=== PATIENT | female | born 1950 | race Caucasian/White ===

== ENCOUNTER 2021-07-27 12:14 | Outpatient (CLI) | payer MEDICARE, BC, SELFPAY ==
--- NOTE | 2021-07-27 12:45 | US_ITS ---
WS: [id number] ULTRASOUND SOFT TISSUES RIGHT neck. HISTORY: mass inferior to thyroid gland COMPARISON: None available. TECHNIQUE: 2-D and color Doppler imaging is submitted. There is a soft tissue hypoechoic mass inferior to the RIGHT thyroid which corresponds to the palpabl e abnormality. This mass is predominantly to the RIGHT of midline but also appears to extend across t he midline to the LEFT. Mass measures 3.0 x 2.9 x 2.0 cm and there is some increased vascularity cent rally. Mass extends into the midline between the clavicular heads. US/US soft tissue head neck [id number] IMPRESSION: Solid mass with increased vascularity in the midline of the inferior neck showi ng slightly greater to the RIGHT. Lymphadenopathy is likely. May be a goiter or exophytic thyroid tissue. This does not appear to be a cystic mass or thyroglo ssal duct cyst. There is vascularity centrally. This mass needs to be further e valuated by CT. Recommend neck CT with IV contrast for complete evaluation.
== END 2021-07-27 12:15 | disposition home or self-care (01) ==
LOC: RAD 12:16
PROVIDERS: Visit Provider Family Medicine
DX: R22.1 Localized swelling, mass and lump, neck (principal)
CPT/HCPCS: 76536

== ENCOUNTER 2021-10-08 15:19 | Outpatient (CLI) | payer MEDICARE, BC, SELFPAY ==
--- NOTE | 2021-10-08 15:30 | CT_ITS ---
WS: [id number] CT NECK WITH CONTRAST HISTORY: R22.1 - Localized swelling, mass and lump, neck TECHNIQUE: Contiguous 5 mm axial images are performed through the neck with intravenous contrast. Sag ittal and coronal reformats are also submitted. All CT scans at [facility] use at least one o f these dose optimization techniques: automated exposure control; mA and/or kV adjustment per patient size (includes targeted exams where dose is matched to clinical indication); or iterative reconstruc tion. CONTRAST: CONTRAST: Omnipaque 350; 95 mL IV. DLP: 281.10 mGy.cm COMPARISON: Soft tissue ultrasound 07/27/2021. There is a solid lobulated mass centered in the midline of the neck beginning along the inferior dmitri in of the thyroid. This mass abuts both the RIGHT and LEFT lobes of the thyroid and the isthmus. Ther e is probable invasion into the thyroid gland but not likely arising from the thyroid gland. The ster nocleidomastoid muscles are being invaded and there is no longer fat plane. Slightly greater invasion on the RIGHT. The RIGHT internal jugular vein is being displaced and deformed. There is very slight contact on the LEFT jugular vein. Mass begins in the inferior neck and extends over a length of 4.5 c m distally and between the clavicular heads. Transverse diameter 6.1 cm and AP diameter 4.6 cm. No tongue base mass. Fossa of Rosenmuller and torus tubarius are negative. Parotid glands and submand ibular glands are negative. There are small level 1 and level 2 lymph nodes. The largest lymph node i s 9 mm and slightly rounded at level IIa on the RIGHT. False and true vocal cords are negative. No la ryngeal abnormality. Additional lymph node which appears enlarged between the RIGHT innominate and LE FT common carotid artery. Lymph node with a maximum diameter 12 mm. Imaging the upper lung montemayor is normal. Emphysematous changes but no mass or adenopathy. Moderate mucoperiosteal thickening in the LEFT maxillary sinus. CT/CT neck w con* [id number] IMPRESSION: 1. Large soft tissue mass in the inferior LEFT neck measures 6.1 x 4.6 cm and extends over length of 4.5 cm. Mass begins from the inferior border of the thyr oid and extends inferiorly into the supraclavicular notch. Inseparable and prob ably extends into the sternocleidomastoid muscles and thyroid gland. Favor this is probably lymphoma. Fine-needle aspiration/core biopsy need to be performed for histology. 2. There is additional enlarged lymph node centered between the RIGHT and sherry nant and LEFT carotid artery. Bovine arch. Additional RIGHT indeterminate level IIa lymph node.
[2021-10-08 15:53] LABS: Blood Urea Nitrogen 17 mg/dL (8-23)
[2021-10-08] MEDS: iohexol 350 mg/mL 100 mL Btl IV (15:57)
== END 2021-10-08 15:20 | disposition home or self-care (01) ==
LOC: RAD 15:20
PROVIDERS: Visit Provider Family Medicine
DX: R22.1 Localized swelling, mass and lump, neck (principal)
CPT/HCPCS: 70491; 82565; 84520

== ENCOUNTER 2021-10-21 10:37 | Outpatient (CLI) | payer MEDICARE, BC, SELFPAY ==
--- NOTE | 2021-10-21 10:42 | US_ITS ---
WS: [id number] ULTRASOUND GUIDED BIOPSY INFERIOR RIGHT NECK. HISTORY: growing anterior neck mass Procedure, risks, and complications are explained to the patient. Consent was obtained. Skin is clean sed with ChloraPrep and anesthetized with 1% buffered lidocaine. There is a soft tissue mass along the anterior RIGHT neck within the suprasternal notch location. Thi s mass abuts the thyroid and sternocleidomastoid muscles on prior imaging studies. Mass is localized with ultrasound. Skin is cleansed with ChloraPrep and anesthetized with 1% buffered lidocaine. Procedure is explained in detail to the patient. Fine-needle aspirations are performed with 25-gauge needles. Additional 20-gauge core biopsy is perfo rmed. nuclear medicine chief technologist are present to collect the specimens. No complications. Patient will be observed for 10 to 15 minutes post procedure. US/ biopsy [id number] IMPRESSION: 1. Uncomplicated fine-needle aspiration and core biopsy of a suprasternal notc h, midline neck mass. 2. No complications.
[2021-10-22 12:14] LABS: Lymphoma Profile (BBPL) See Report
== END 2021-10-21 10:38 | disposition home or self-care (01) ==
LOC: RAD 10:39
PROVIDERS: PCP Family Medicine; Visit Provider Family Medicine
DX: D47.9 Neoplasm of uncertain behavior of lymphoid, hematopoietic and related tissue, unspecified (principal); R22.1 Localized swelling, mass and lump, neck
CPT/HCPCS: 10005; 20206; 76942; 88173; 88184; 88185; 88305; 88309; 88342

== ENCOUNTER → 2021-10-25 13:53 | Day surgery (SDC) | payer MEDICARE, BC, SELFPAY | PROVIDERS: PCP Family Medicine; Referring Provider Family Medicine; Visit Provider Otolaryngology | DX: Z01.818 Encounter for other preprocedural examination (principal); R22.1 Localized swelling, mass and lump, neck | CPT/HCPCS: 99205 ==

== ENCOUNTER 2021-11-04 06:52 | Day surgery (SDC) | payer MEDICARE, BC, SELFPAY ==
[2021-11-03 13:42] VITALS: BMI 31.0
[2021-11-04] VITALS (9 sets, daily range): BP systolic 93–163; BP diastolic 47–79; PULSE 57–77; RESP 13–22; TEMP 36.1–36.6; O2SAT 94–100
[2021-11-04] MEDS: sodium chloride 0.9% 1,000 ML 30 ML IV (07:28)
--- NOTE | 2021-11-04 07:51 | ANES.PREANE2 ---
Pre-Anesthetic Assessment Height/Weight: Height 1.52 m Weight 72.121 kg Temp Pulse Resp BP Pulse Ox 97.6 F 62 18 138/75 97 11/04/21 07:19 11/04/21 07:19 11/04/21 07:19 11/04/21 07:19 11/04/21 07:19 Preop Diagnosis: Anterior neck mass etiology undetermined Operation Date: 11/04/21 08:35 Proposed Procedures p Exploration of anterior neck and removal of tissue 56032/R22.1(Not Applicable) - Dexter Madison MD Familial anesthetic complications: None Was Beta Navi taken within 24 hours: N/A Was Clonidine taken within 24 hours: N/A Last intake: Intake Last Liquid Date 11/03/21 Last Liquid Time 21:00 Last Solid Date 11/03/21 Last Solid Time 19:00 Social Tobacco and No alcohol Exam alert, oriented x 3 and regular rate & rhythm Airway Submandibular: within normal limits Cervical ROM: Other (limited extension) Mallampati: Class III Pulmonary Chronic Obstructive Pulmonary Disease CV/HEM Hypertension Neuropsych Anxiety and Depression Anesthetic Plan ASA status: 2 Anesthesia: General Medications/Allergies Home Medications Medication Instructions Recorded Confirmed Last Taken Type lorazepam 1 mg tablet 1 mg PO DAILY PRN 11/03/21 11/04/21 11/04/21 History multivitamin 1 tab PO DAILY 11/03/21 11/04/21 11/03/21 History Allergies Allergy/AdvReac Type Severity Reaction Status Date / Time No Known Allergies Allergy Verified 11/04/21 07:17 Current Medications Generic Name Dose Route Start Last Admin Trade Name Freq PRN Reason Stop Dose Admin Sodium Chloride 1,000 mls @ 30 mls/hr 11/04/21 07:15 11/04/21 07:28 Sodium Chloride 0.9% IV 11/05/21 07:14 30 mls/hr .Q24H KENAN Administration PFSH Anesthesia Medical History Palpable mass of neck Social History Smoking and tobacco status: never smoked Alcohol intake: current Data Anesthesia Cardiac Studies: No Data to Display
--- NOTE | 2021-11-04 09:18 | W.PM.OPSUD ---
Surgery/Procedure H&P Update DATE OF PROCEDURE: November 04, 2021 DATE H&P PERFORMED: 10/25/21 H&P UPDATE INFORMATION: I have reviewed H&P completed within last 30 days, I have examined patient prior to procedure and No changes to prior documentation CHANGES TO PREVIOUS DOCUMENTATION: No changes PREOP DIAGNOSIS: Anterior neck mass etiology undetermined PRIMARY INDICATION FOR PROCEDURE: Obtain tissue for diagnostic purposes of anterior lower neck mass. PLANNED PROCEDURE: Operation Date: 11/04/21 08:35 Proposed Procedures p Exploration of anterior neck and removal of tissue 63719/R22.1(Not Applicable) - Dexter Madison MD
[2021-11-04] MEDS: neomycin-poly-bacitracin oint 28 gm 1 APPLIC TOPICAL (10:12)
--- NOTE | 2021-11-04 10:21 | PM.OP ---
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 Procedure done: Neck exploration and incisional biopsy of lower anterior neck mass with frozen section. Implants: No implants used. Specimens removed/disposition: Section of anterior neck mass excised and sent to pathology for frozen section and permanent section. Pathology: Frozen section returned as malignant metastatic disease from uncertain primary possibly squamous cell carcinoma. Surgeon: Dexter Madison MD Anesthesia: General and Local Estimated blood loss: 10 mL Complications: No complications encountered Findings: Patient had a lobulated irregular whitish appearing mass with some firm areas and some necrosis. Brief History: 71-year-old female patient has had an anterior neck mass that has been enlarging and causing her some symptomatology as well as the obvious external deformity on her neck. Therefore she had seen her primary doctor who apparently did a core biopsy and this was inconclusive. Patient is being brought to the operating room at this time to undergo an open incisional biopsy with removal of enough tissue to get a definitive diagnosis. The procedure its risks and complications were explained and understood. Informed consent was granted and witnessed. The discussed risks included bleeding infection numbness scarring swelling bruising persistence of the problem as this is just a diagnostic procedure and therefore need for additional treatment as well as more serious risks associated with anesthesia. Procedure: Description of procedure: The patient was placed on the operating table in the supine position. Adequate general LMA anesthesia was obtained. Patient received Ancef IV for prophylaxis. The patient was placed supine on the table and then placed into a beachchair position with shoulder roll placed under the shoulder and the neck and chin extended somewhat. A timeout was accomplished identifying the patient date of plan procedure allergies fire risk and medications given. The right lateral aspect was the area that I was going to take the biopsy from and so I cleansed the area with alcohol and then injected a total of 1.7 mL of 2% Xylocaine with 1-100,000 epinephrine. Then the patient was prepped and draped in usual fashion. A marking pen was used to outline a curved incision and a lower neck skin crease line. The incision was created with the cut mode of the Bovie and extended down through the subcutaneous fat layer. Then careful dissection was carried out layer by layer down to the mass. Hemostasis was attained with bipolar cautery. When the mass was identified it appeared somewhat irregular and lobulated with general appearance of lymph node tissue. I incised a segment of this from the right anterior portion of the mass taking about 2 by 2 x 2 centimeter cubed tissue. Some of the tissue was firm and much of it was very soft and likely necrotic. Because of that I took another segment about 1.5 cm cube from the right lateral aspect at its attachment to the clavicle head. Specimen was sent to pathology for frozen section. The area was packed and hemostasis was attained with bipolar cautery. The specimen returned as metastatic likely squamous cell carcinoma. He felt that there was adequate tissue to give a definitive diagnosis. When that information was available I controlled bleeding again. There was general tissue ooze from the viable tumor and therefore I applied Surgicel over this area. Then I closed in multiple layers with interrupted 4-0 chromic suture to close the space. Then closed the subcutaneous layer with interrupted 4-0 chromic and closed the skin with lane. The area was then cleansed. Neosporin ointment was applied and a large sterile Band-Aid was placed over the lane and the incision. Drapes were removed and the patient was returned to anesthesia for wake-up and extubation. The patient tolerated the procedure well had an estimated blood loss of 10 mL and arrived in recovery in stable condition.
--- NOTE | 2021-11-04 13:45 | ANE.PACU2 ---
Inpatient post-anesthesia follow up: Airway intact: Yes Vital signs: Temperature 97.8 F Pulse Rate 65 Respiratory Rate 16 Blood Pressure 163/79 Pulse Oximetry 98 Oxygen Delivery Me thod Room Air Oxygen Flow Rate 6 Fraction of Inspir ed Oxygen Hydration adequate: Yes Nausea and vomiting: No Pain level: 2 Mental status: Baseline
[2021-11-25 09:59] LABS: Miscellaneous Test See Scanned Lab Rpt
== END 2021-11-04 11:42 | disposition home or self-care (01) ==
PROVIDERS: PCP Family Medicine; Visit Provider Otolaryngology
PROC: (CPT 13131; principal; 2021-11-04 08:25)
DX: C79.2 Secondary malignant neoplasm of skin (principal); R22.1 Localized swelling, mass and lump, neck; J44.9 Chronic obstructive pulmonary disease, unspecified; I10 Essential (primary) hypertension; F41.9 Anxiety disorder, unspecified; F32.9 Major depressive disorder, single episode, unspecified
CPT/HCPCS: 13131; 21555; 88307; 88331; 88365; 88374; J0330; J0690; J1100; J2370; J2405; J2704; J3010; J3490; J7030

== ENCOUNTER → 2021-11-12 09:04 | Outpatient (BNVA) | payer MEDICARE, BC, SELFPAY | PROVIDERS: PCP Family Medicine; Visit Provider Otolaryngology | DX: R22.1 Localized swelling, mass and lump, neck (principal); C80.1 Malignant (primary) neoplasm, unspecified; C79.89 Secondary malignant neoplasm of other specified sites | CPT/HCPCS: 31575; 99024; 99203 ==

== ENCOUNTER → 2021-11-16 09:32 | Outpatient (BNVA) | payer MEDICARE, BC, SELFPAY | PROVIDERS: PCP Family Medicine; Visit Provider Otolaryngology | DX: C85.10 Unspecified B-cell lymphoma, unspecified site (principal); C80.1 Malignant (primary) neoplasm, unspecified; C79.89 Secondary malignant neoplasm of other specified sites | CPT/HCPCS: 99024 ==

== ENCOUNTER → 2021-12-17 09:28 | Outpatient (BNVA) | payer MEDICARE, BC, SELFPAY | PROVIDERS: PCP Family Medicine; Visit Provider Otolaryngology | DX: C85.10 Unspecified B-cell lymphoma, unspecified site (principal) | CPT/HCPCS: 99024 ==

== ENCOUNTER 2021-12-22 08:10 | Oncology outpatient (recurring) (ONCR) | payer MEDICARE, BC, SELFPAY | END 2021-12-22 23:59 | disposition home or self-care (01) | PROVIDERS: PCP Family Medicine; Visit Provider Internal Medicine Medical Oncology | DX: C85.11 Unspecified B-cell lymphoma, lymph nodes of head, face, and neck (principal) | CPT/HCPCS: 99203 ==

== ENCOUNTER 2021-12-28 09:55 | Day surgery (SDC) | payer MEDICARE, BC, SELFPAY ==
[2021-12-27 12:25] VITALS: BMI 30.2
--- NOTE | 2021-12-28 | SCC_ITS ---
Procedure done: 1. Placement of PowerPort catheter via the right internal jugular vein 2. Fluoroscopic guidance and interpretation for placement of catheter 3. Ultrasound guidance to access the right internal jugular vein 31.6 seconds of fluoroscopic guidance, for a cumulative dose of 5.16 mGy, was provided to Dr. Juárez by the radiology department. C-arm images of the chest were saved for the patient's permanent record. [facility]
--- NOTE | 2021-12-28 09:59 | SC_ITS ---
WS: [id number] C-ARM RADIOGRAPHS CHEST; 2 IMAGES HISTORY: PowerPort placement COMPARISON: None available. Intraoperative imaging during RIGHT subclavian PowerPort placement. Tip of the power port overlies th e distal SVC. SC/C-arm FL for CVA [id number] IMPRESSION: Intraoperative imaging during RIGHT sided power port placement.
[2021-12-28 10:09] VITALS: BP 161/86; PULSE 65; RESP 16; TEMP 36.6; O2SAT 96
[2021-12-28] MEDS: sodium chloride 0.9% 1,000 ML 30 ML IV (10:29)
--- NOTE | 2021-12-28 11:57 | ANES.PREANE2 ---
Pre-Anesthetic Assessment Height/Weight: Height 1.52 m Weight 70.307 kg Temp Pulse Resp BP Pulse Ox 98 F 65 16 161/86 96 12/28/21 10:09 12/28/21 10:09 12/28/21 10:09 12/28/21 10:09 12/28/21 10:09 Preop Diagnosis: Lymphoma Operation Date: 12/28/21 11:30 Proposed Procedures p Portacath Placement 29307,C85.11(Not Applicable) - Rahat Juárez MD Familial anesthetic complications: none Was Beta Navi taken within 24 hours: N/A Was Clonidine taken within 24 hours: N/A Last intake: Intake Last Liquid Date 12/27/21 Last Liquid Time 19:00 Last Solid Date 12/27/21 Last Solid Time 19:00 Social No alcohol and No tobacco Exam alert, oriented x 3 and regular rate & rhythm Airway Submandibular: within normal limits Cervical ROM: within normal limits Mallampati: Class II Dentition: chipped CV/HEM Hypertension lymphoma Neuropsych Anxiety Anesthetic Plan ASA status: 3 Anesthesia: MAC Medications/Allergies Home Medications Medication Instructions Recorded Confirmed Last Taken Type lorazepam 1 mg tablet 1 mg PO DAILY PRN 11/03/21 12/28/21 12/28/21 09:00 History multivitamin 1 tab PO DAILY 11/03/21 12/28/21 12/27/21 History Allergies Allergy/AdvReac Type Severity Reaction Status Date / Time No Known Allergies Allergy Verified 12/28/21 10:02 Current Medications Generic Name Dose Route Start Last Admin Trade Name Freq PRN Reason Stop Dose Admin Sodium Chloride 1,000 mls @ 30 mls/hr 12/28/21 10:00 12/28/21 10:29 Sodium Chloride 0.9% IV 12/29/21 09:59 30 mls/hr .Q24H KENAN Administration PFSH Anesthesia Medical History Anxiety Surgical History S/P biopsy (~11/04/21) Neck exploration and incisional biopsy of lower anterior neck mass Family History Father Cancer bladder Grandmother Stroke Other Diabetes Hyperlipidemia Hypertension Lung disease Denies family history of CAD (coronary artery disease) Clotting disorder Dementia Psychiatric illness Chronic kidney disease (CKD) Suicide Anesthesia complication Bleeding disorder Social History Smoking and tobacco status: never smoked Alcohol intake: current Data Anesthesia Cardiac Studies: No Data to Display
--- NOTE | 2021-12-28 12:39 | W.PM.OPSUD ---
Surgery/Procedure H&P Update DATE OF PROCEDURE: December 28, 2021 DATE H&P PERFORMED: 12/22/21 H&P UPDATE INFORMATION: I have reviewed H&P completed within last 30 days, I have examined patient prior to procedure and No changes to prior documentation PREOP DIAGNOSIS: Lymphoma PRIMARY INDICATION FOR PROCEDURE: The same PLANNED PROCEDURE: Operation Date: 12/28/21 11:30 Proposed Procedures p Portacath Placement 68135,C85.11(Not Applicable) - Rahat Juárez MD
[2021-12-28] MEDS: ceFAZolin 2,000 MG in sodium chloride 0.9% (plus) 50 ML 100 MG IV (13:00)
[2021-12-28] MEDS: heparin, porcine 1,000 unit/mL INJ 10 mL 9000 UNIT XX (13:38)
[2021-12-28] MEDS: lidocaine 2% INJ 20 mL INJECTION (13:38)
--- NOTE | 2021-12-28 13:56 | PM.OP ---
Operative Report Date of procedure: December 28, 2021 Pre-op diagnosis: Preop Diagnosis Lymphoma Post-op diagnosis: Difficulty in accessing the right subclavian vein due to body habitus Procedure done: 1. Placement of PowerPort catheter via the right internal jugular vein 2. Fluoroscopic guidance and interpretation for placement of catheter 3. Ultrasound guidance to access the right internal jugular vein Surgeon: Rahat Juárez MD Foxing Cutting Machine Operator: Surgical techmanohar Dietz paint technician dwain Circulating nurse Aster Anesthesia: MAC (Gracie Mistry) Estimated blood loss (mL): 15 Procedure: Patient was identified in the holding area and taken to the operative room and placed in supine position IV propofol was given by the anesthesia provider ,both arms were tucked,Time-out was done verifying the patient's name/date of /planned procedure and destination after the procedure, all were in agreement. SCDs confirmed to be functioning, preoperative antibiotics administered per protocol, and beta abdirashid protocol was confirmed, appropriate positioning of the patient was done by me. Medications were reviewed to assess for anticoagulant usage. Risks and benefits and prevention of central line associated blood stream infection (CLABSI) were discussed with the patient/CPOA, and a consent was obtained. Monitors were in place and monitored throughout the procedure. All necessary supplies were available prior to start. Hand hygiene was completed prior to starting. Maximum barrier technique was utilized including a sterile gown, sterile gloves with a hat and mask. Site was was prepped with [chlorhexidine] and a full body drape was placed. 5 mL of 2% lidocaine was injected into the skin with a 25 gauge needle. Prep& drape was done under the usual sterile technique, lidocaine 2% was injected at the site of the stick, started by Right subclavian vein but patient's body habitus hindered safe access so I deviated my attention to the right internal jugular vein Right Internal Juglar vein stick that retrieved venous blood was obtained from the first stick under ultrasound guidance and there was no evidence of intraluminal thrombosis, interpretation was done by me through the whole entire procedure, a guidewire was then threaded and under the guidance of fluoroscopy position was confirmed to be in the right side of the heart and per my interpretation, PVC were gone after wire adjust, at that point the guidewire was secured to the drapes with a hemostat and the needle was taken out. Attention was then deviated towards creation of a pocket for the port were lidocaine 2% was injected using an 15 blade knife skin incision was created at the right upper Chest ,dissection using the Bovie to create a pocket for the Port-A-Cath to be accommodated, hemostasis was secured, after the port being appropriately flushed it was inserted into the pocket and a tunneler was used to accommodate the catheter of the port cath to be delivered through the incision first created at the site of the stick and then I was able to retrieve the catheter at the index site of the stick. At that point under fluoroscopy an estimated length was measured for the catheter and was cut at the designed level, followed by that a dilator with the sheath introduced onto the guidewire the dilator and the wire were retrieved and the catheter of the port was introduced via the sheath where it was peeled off and the catheter maintained to be in the SVC that was confirmed with fluoroscopy, and the fluoroscopy interpretation was done by me throughout the entire procedure. Multiple flushes of the port was done by heparin and I was able to retrieve without difficulty venous blood as well as appropriate flushing was achieved. The port was kept in its pocket,3-0 Vicryl deep subdermal interrupted sutures, skin was then closed by 4-0 Monocryl as subcuticular closure. The port was appropriately flushed with heparin and venous blood was withdrawn without difficulty The stick site was closed by 4-0 Monocryl and Dermabond was used followed by pressure dressing. Patient tolerated the procedure well was taken to the recovery area Count was correct at the end of the procedure I was present for the whole entire procedure
--- NOTE | 2021-12-28 14:00 | XRR_ITS ---
PROCEDURE INFORMATION: Exam: XR Chest Exam date and time: 12/28/2021 2:05 PM Age: 71 years old Clinical indication: Other vascular access device placement or adjustment; Port; Additional info: Status post right internal jugular vein, powerport placement TECHNIQUE: Imaging protocol: Radiologic exam of the chest. Views: 1 view. COMPARISON: CT neck w con* [id number] 10/08/2021 3:52 PM FINDINGS: Tubes, catheters and devices: Right chest wall infusion port with catheter tip in the cavoatrial region. Lungs: There is a triangular-shaped opacity in the right medial basilar region. This is probably a prominent epicardial fat however comparison with prior imaging study should be obtained for confirmation.The lung bases are suboptimally assessed due to technique however the upper lungs are clear of focal consolidation. Pleural spaces: Unremarkable. No pleural effusion. No pneumothorax. Heart/Mediastinum: Cardiac silhouette appears normal in size. No obvious vascular congestion. Bones/joints: No acute osseous findings. Other findings: Single view was submitted. XR/XR chest 1V portable [id number] IMPRESSION: Right medial basilar opacity as described. See discussion above. No acute findings otherwise.
[2021-12-28 14:07] VITALS: BP 124/93; PULSE 65; RESP 17; TEMP 36.3; O2SAT 100
[2021-12-28 14:10] VITALS: BP 151/73; PULSE 61; RESP 17; O2SAT 100
--- NOTE | 2021-12-28 14:14 | SUR.PHASEI ---
1405 PT AWAKE VERBALZIED NO PAIN OR NAUSEA, MONITOR SR O ECTOPY, DRESSING TO RT CHEST X 2 D/I X RAY AND DR ROGERS AT BEDSIDE, VSS PT MOVES ALL EXT TO COMMAND, IV #20 TO RT HAND NS 50 ML U P AT KVO RATE PER GRAVITY.
[2021-12-28 14:15] VITALS: BP 161/88; PULSE 60; RESP 11; TEMP 36.2; O2SAT 100
[2021-12-28 14:24] VITALS: BP 165/80; PULSE 59; RESP 16; TEMP 36.6; O2SAT 100
[2021-12-28 14:41] VITALS: BP 160/82; RESP 60; TEMP 36.6; O2SAT 99
--- NOTE | 2021-12-28 16:12 | ANE.PACU2 ---
Inpatient post-anesthesia follow up: Airway intact: Yes Vital signs: Temperature 97.8 F Pulse Rate 59 Respiratory Rate 60 Blood Pressure 160/82 Pulse Oximetry 99 Oxygen Delivery Me thod Room Air Oxygen Flow Rate Fraction of Inspir ed Oxygen Hydration adequate: Yes Nausea and vomiting: No Pain level: 2 Mental status: Baseline
== END 2021-12-28 15:04 | disposition home or self-care (01) ==
PROVIDERS: PCP Family Medicine; Visit Provider Surgery
PROC: (CPT 36561; principal; 2021-12-28 11:20)
DX: C85.90 Non-Hodgkin lymphoma, unspecified, unspecified site (principal); I10 Essential (primary) hypertension; F41.9 Anxiety disorder, unspecified
CPT/HCPCS: 36561; 71045; 76000; 77001; C1788; J1644; J2704; J7030

== ENCOUNTER → 2022-01-07 08:55 | Outpatient (BNVA) | payer MEDICARE, BC, SELFPAY | PROVIDERS: PCP Family Medicine; Visit Provider Surgery | DX: Z95.828 Presence of other vascular implants and grafts (principal) | CPT/HCPCS: 99213 ==

== ENCOUNTER 2022-01-11 11:13 | Oncology outpatient (recurring) (ONCR) | payer MEDICARE, BC, SELFPAY ==
--- NOTE | 2022-01-11 11:45 | USCV_ITS ---
Negrita Varghese Age: 71 Gender: F : 1950 Exam Date: 01/11/2022 11:37 Ordering Phys: Doug Giron MD Technologist: Amos Maynard [place] [facility] [place]: pretreatment eval BP: 144 / 80 HR: 61 Rhythm: Sinus Technical Quality: Adequate MEASUREMENTS (Male / Female) Normal Values 2D ECHO LV Diastolic Diameter PLAX 3.2 cm 4.2 - 5.9 / 3.9 - 5.3 cm LV Systolic Diameter PLAX 1.9 cm IVS Diastolic Thickness 1.4 cm 0.6 - 1.0 / 0.6 - 0.9 cm IVS Systolic Thickness 1.3 cm LVPW Diastolic Thickness 1.4 cm 0.6 - 1.0 / 0.6 - 0.9 cm LVPW Systolic Thickness 1.5 cm LVOT Diameter 2.0 cm LV Ejection Fraction 2D Teich 73.4 % LV Ejection Fraction MOD 2C 57.3 % LV Ejection Fraction 2C AL 58.1 % LA Diameter 3.2 cm LA Width 3.4 cm LA Height 4.1 cm RA Width 2.9 cm RA Height 4.1 cm Aorta at Sinotubular Diameter 2.0 cm IVC Diameter 1.2 cm M-MODE Aortic Annulus Diameter 2.2 cm LA Ao Ratio MM 1.5 MV E Point Septal Separation 0.3 cm DOPPLER Right Atrial Pressure 3.0 mmHg FINDINGS Left Ventricle 2D only. No M-mode or doppler. Normal left ventricular size, systolic function and wall thickness, with no regional wall motion abnormalities. Left ventricular ejection fraction is estimated at 60 %. Right Ventricle Normal right ventricular size and systolic function. Right Atrium The right atrium is normal in size. Left Atrium The left atrium is normal in size. Mitral Valve Structurally normal mitral valve. Aortic Valve Structurally normal trileaflet aortic valve. Tricuspid Valve Structurally normal tricuspid valve. Pulmonic Valve Pulmonic valve not well visualized. Pericardium Normal pericardium without effusion. Aorta Normal ascending aorta dimension. IVC The inferior vena cava pulmonary and hepatic veins appear normal. CONCLUSIONS 2D only. No M-mode or doppler. Normal left ventricular size, systolic function and wall thickness, with no regional wall motion abnormalities. Left ventricular ejection fraction is estimated at 60 %. Dr. Brendan Arciniega MD (Electronically Signed) Final Date: 11 January 2022 14:41 S
== END 2022-01-16 23:59 | disposition home or self-care (01) ==
LOC: RAD 11:17 → ONCMED 01-12 15:56
PROVIDERS: PCP Family Medicine; Visit Provider Internal Medicine Medical Oncology
DX: C85.11 Unspecified B-cell lymphoma, lymph nodes of head, face, and neck (principal); Z79.899 Other long term (current) drug therapy
CPT/HCPCS: 93308

== ENCOUNTER → 2022-02-01 08:21 | Outpatient (BNVA) | payer MEDICARE, BC, SELFPAY | PROVIDERS: PCP Family Medicine; Visit Provider Internal Medicine Medical Oncology | DX: C85.11 Unspecified B-cell lymphoma, lymph nodes of head, face, and neck (principal); D70.1 Agranulocytosis secondary to cancer chemotherapy; T45.1X5A Adverse effect of antineoplastic and immunosuppressive drugs, initial encounter; D69.59 Other secondary thrombocytopenia; Z79.899 Other long term (current) drug therapy | CPT/HCPCS: 99214; 99215 ==

== ENCOUNTER 2022-02-15 09:00 | Oncology outpatient (recurring) (ONCR) | payer MEDICARE, BC, SELFPAY ==
[2022-01-21 10:14] LABS: Basophils % 0.5 %; Eosinophils # 0.1 10^3/uL (0.0-0.8); Eosinophils % 1.8 %; Hematocrit 41.7 % (37.0-47.0); Hemoglobin 13.8 g/dL (11.5-15.3); Lymphocytes % 30.3 %; Mean Corpuscular HGB Conc 33.1 g/dL (30.0-36.0); Mean Corpuscular Hemoglobin 30.9 pg (28.0-34.0); Mean Corpuscular Volume 93.3 fl (81-99); Mean Platelet Volume 10.1 fL (7.4-10.4); Monocytes # 0.6 10^3/uL (0.2-0.9); Monocytes % 9.5 %; Neutrophils # 3.77 10^3/uL (1.8-7.7); Neutrophils % 57.6 %; Nucleated Red Blood Cells % 0 %; Platelet Count 155 10^3/cmm (130-400); Red Blood Count 4.47 10^6/uL (4.1-5.3); Red Cell Distribution Width 12.7 % (12.1-15.1); White Blood Count 6.5 10^3/uL (4.0-10.0)
[2022-01-21 10:49] LABS: Alanine Aminotransferase 13 U/L (0-33); Albumin Level 4.2 g/dL (3.5-5.2); Alkaline Phosphatase 96 IU/L (35-105); Anion Gap 14.3 (5-19); Aspartate Amino Transferase 20 U/L (0-32); Blood Urea Nitrogen 19 mg/dL (8-23); Calcium 9.2 mg/dL (8.5-10.5); Carbon Dioxide 26 mmol/L (22-29); Chloride 102 mmol/L (98-107); Globulin 2.9 g/dL (1.3-4.6); Glucose 90 mg/dL (65-115); Immunoglobulin IGA 251 mg/dL (70-400); Immunoglobulin IGG 1166 mg/dL (700-1600); Immunoglobulin IGM 120 mg/dL (40-230); Lactate Dehydrogenase 250 U/L (135-214); Osmolality Calculated 288 mOsm/kg (285-295); Potassium 4.3 mmol/L (3.5-5.1); Sodium 138 mmol/L (136-145); Total Bilirubin 0.3 mg/dL (0.15-1.2); Total Protein 7.1 g/dL (6.6-8.7)
[2022-01-21 12:57] LABS: Hepatitis A Antibody IgM Non-Reactive (Nonreactive); Hepatitis B Core AB, Total Non-Reactive (Nonreactive); Hepatitis B Surface Antigen Non-Reactive (Nonreactive); Hepatitis C Virus Antibody Non-Reactive (Nonreactive)
[2022-01-21 12:59] LABS: Hepatitis B Surface AB < 3.5 (11.5-1000)
[2022-01-25] VITALS (9 sets, daily range): BP systolic 95–131; BP diastolic 48–74; PULSE 53–64; RESP 14–16; TEMP 35.7–36.7; O2SAT 94–96; BMI 29.9
[2022-01-25 08:22] LABS: Basophils % 0.6 %; Eosinophils # 0.1 10^3/uL (0.0-0.8); Eosinophils % 2.4 %; Hematocrit 40.6 % (37.0-47.0); Hemoglobin 13.7 g/dL (11.5-15.3); Lymphocytes # 1.9 10^3/uL (0.8-4.8); Lymphocytes % 34.6 %; Mean Corpuscular HGB Conc 33.7 g/dL (30.0-36.0); Mean Corpuscular Hemoglobin 31.4 pg (28.0-34.0); Mean Corpuscular Volume 93.1 fl (81-99); Mean Platelet Volume 10.4 fL (7.4-10.4); Monocytes # 0.5 10^3/uL (0.2-0.9); Monocytes % 9.5 %; Neutrophils # 2.81 10^3/uL (1.8-7.7); Neutrophils % 52.5 %; Nucleated Red Blood Cells % 0 %; Platelet Count 151 10^3/cmm (130-400); Red Blood Count 4.36 10^6/uL (4.1-5.3); Red Cell Distribution Width 12.8 % (12.1-15.1); White Blood Count 5.4 10^3/uL (4.0-10.0)
[2022-01-25 08:45] LABS: Alanine Aminotransferase 7 U/L (0-33); Albumin Level 4.1 g/dL (3.5-5.2); Alkaline Phosphatase 90 IU/L (35-105); Aspartate Amino Transferase 20 U/L (0-32); Blood Urea Nitrogen 10 mg/dL (8-23); Calcium 9.3 mg/dL (8.5-10.5); Carbon Dioxide 27 mmol/L (22-29); Chloride 105 mmol/L (98-107); Glucose 110 mg/dL (65-115); Osmolality Calculated 292 mOsm/kg (285-295); Sodium 141 mmol/L (136-145); Total Bilirubin 0.4 mg/dL (0.15-1.2); Total Protein 7.1 g/dL (6.6-8.7)
[2022-01-25 09:18] LABS: Anion Gap 13.4 (5-19); Lactate Dehydrogenase 332 U/L (135-214); Potassium 4.4 mmol/L (3.5-5.1)
[2022-01-25] MEDS: sodium chloride 0.9% 250 ML 100 ML IV (09:54)
[2022-01-25] MEDS: famotidine 20 mg/2 mL INJ IVP (09:55)
[2022-01-25] MEDS: diphenhydrAMINE 50 mg/mL SDV 1mL 25 MG IVP (09:58)
[2022-01-25] MEDS: OLANZapine 5 mg TABLET PO (10:03)
[2022-01-25] MEDS: palonosetron 0.25 mg/5 mL SDV IVP (10:08)
[2022-01-25] MEDS: acetaminophen 325 mg Tablet 650 MG PO (10:19)
[2022-01-25] MEDS: fosaprepitant 150 MG in sodium chloride 0.9% 150 ML 300 MG IV (10:33)
[2022-01-25] MEDS: rituximab-abbs 500 MG, rituximab-abbs 150 MG in sodium chloride 0.9% 500 ML 188.33 MG IV (11:07)
[2022-01-25 11:25] LABS: Hepatitis B Surface Antigen Non-Reactive (Nonreactive)
[2022-01-25 12:05] LABS: Hepatitis A Antibody IgM Non-Reactive (Nonreactive); Hepatitis B Core AB, Total Non-Reactive (Nonreactive); Hepatitis C Virus Antibody Non-Reactive (Nonreactive)
[2022-01-25 12:09] LABS: Hepatitis B Surface AB 3.5 (11.5-1000)
[2022-01-25] MEDS: DOXOrubicin 2 mg/ml MDV 84 MG IVP (14:36)
[2022-01-25] MEDS: pegfilgrastim 6 mg/0.6 mL Kit (onpro) SUBCUT (16:24)
[2022-02-01 08:55] LABS: Basophils % 1.1 %; Eosinophils # 0.2 10^3/uL (0.0-0.8); Eosinophils % 9.9 %; Hematocrit 37.6 % (37.0-47.0); Hemoglobin 12.6 g/dL (11.5-15.3); Lymphocytes # 0.7 10^3/uL (0.8-4.8); Lymphocytes % 37.9 %; Mean Corpuscular HGB Conc 33.5 g/dL (30.0-36.0); Mean Corpuscular Hemoglobin 31.6 pg (28.0-34.0); Mean Corpuscular Volume 94.2 fl (81-99); Mean Platelet Volume 11.3 fL (7.4-10.4); Monocytes # 0.3 10^3/uL (0.2-0.9); Monocytes % 14.3 %; Neutrophils % 36.3 %; Nucleated Red Blood Cells % 0 %; Platelet Count 72 10^3/cmm (130-400); Red Blood Count 3.99 10^6/uL (4.1-5.3); White Blood Count 1.8 10^3/uL (4.0-10.0)
[2022-02-01 09:14] LABS: Alanine Aminotransferase 28 U/L (0-33); Albumin Level 3.7 g/dL (3.5-5.2); Alkaline Phosphatase 96 U/L (35-105); Anion Gap 12.6 (5-19); Aspartate Amino Transferase 14 U/L (0-32); Blood Urea Nitrogen 15 mg/dL (8-23); Calcium 8.2 mg/dL (8.5-10.5); Carbon Dioxide 27 mmol/L (22-29); Chloride 103 mmol/L (98-107); Globulin 2.1 g/dL (1.3-4.6); Glucose 140 mg/dL (65-115); Osmolality Calculated 291 mOsm/kg (285-295); Potassium 3.6 mmol/L (3.5-5.1); Sodium 139 mmol/L (136-145); Total Bilirubin 0.4 mg/dL (0.15-1.2); Total Protein 5.8 g/dL (6.6-8.7)
[2022-02-01 09:18] LABS: Lactate Dehydrogenase 180 U/L (135-214)
[2022-02-01 09:26] LABS: Neutrophils # 0.66 10^3/uL (1.8-7.7)
[2022-02-01 09:27] LABS: Slide Review Slide Review Perform
[2022-02-04 09:01] LABS: Basophils % 0.2 %; Eosinophils # 0.3 10^3/uL (0.0-0.8); Eosinophils % 3.7 %; Hematocrit 40.8 % (37.0-47.0); Hemoglobin 13.5 g/dL (11.5-15.3); Lymphocytes # 1.3 10^3/uL (0.8-4.8); Lymphocytes % 15.2 %; Mean Corpuscular HGB Conc 33.1 g/dL (30.0-36.0); Mean Corpuscular Hemoglobin 30.7 pg (28.0-34.0); Mean Corpuscular Volume 92.7 fl (81-99); Mean Platelet Volume 10.9 fL (7.4-10.4); Monocytes % 12.3 %; Neutrophils # 5.24 10^3/uL (1.8-7.7); Neutrophils % 62.2 %; Nucleated Red Blood Cells % 0 %; Platelet Count 92 10^3/cmm (130-400); Red Cell Distribution Width 12.9 % (12.1-15.1); White Blood Count 8.4 10^3/uL (4.0-10.0)
[2022-02-04 09:15] LABS: Alanine Aminotransferase 19 U/L (0-33); Albumin Level 4.1 g/dL (3.5-5.2); Alkaline Phosphatase 116 U/L (35-105); Aspartate Amino Transferase 15 U/L (0-32); Blood Urea Nitrogen 13 mg/dL (8-23); Calcium 9.5 mg/dL (8.5-10.5); Carbon Dioxide 27 mmol/L (22-29); Chloride 101 mmol/L (98-107); Creatinine Clr Calc Pharmacy 55.4559; Globulin 2.6 g/dL (1.3-4.6); Glucose 113 mg/dL (65-115); Osmolality Calculated 287 mOsm/kg (285-295); Sodium 138 mmol/L (136-145); Total Bilirubin 0.2 mg/dL (0.15-1.2); Total Protein 6.7 g/dL (6.6-8.7)
[2022-02-04 09:17] LABS: Anion Gap 14.2 (5-19); Lactate Dehydrogenase 224 U/L (135-214); Potassium 4.2 mmol/L (3.5-5.1)
[2022-02-04 10:02] LABS: Slide Review Slide Review Perform
[2022-02-15 09:11] LABS: Basophils # 0.1 10^3/uL (0.0-0.1); Basophils % 0.9 %; Eosinophils # 0.2 10^3/uL (0.0-0.8); Eosinophils % 2.8 %; Hematocrit 37.1 % (37.0-47.0); Hemoglobin 12.4 g/dL (11.5-15.3); Lymphocytes # 1.3 10^3/uL (0.8-4.8); Lymphocytes % 20.4 %; Mean Corpuscular HGB Conc 33.4 g/dL (30.0-36.0); Mean Corpuscular Hemoglobin 31.4 pg (28.0-34.0); Mean Corpuscular Volume 93.9 fl (81-99); Mean Platelet Volume 9.5 fL (7.4-10.4); Monocytes # 0.9 10^3/uL (0.2-0.9); Monocytes % 13.8 %; Neutrophils # 3.87 10^3/uL (1.8-7.7); Neutrophils % 61.3 %; Nucleated Red Blood Cells % 0 %; Platelet Count 224 10^3/cmm (130-400); Red Blood Count 3.95 10^6/uL (4.1-5.3); Red Cell Distribution Width 13.8 % (12.1-15.1); White Blood Count 6.3 10^3/uL (4.0-10.0)
[2022-02-15 09:32] LABS: Alanine Aminotransferase 22 U/L (0-33); Albumin Level 4.2 g/dL (3.5-5.2); Alkaline Phosphatase 98 U/L (35-105); Anion Gap 14.3 (5-19); Aspartate Amino Transferase 19 U/L (0-32); Blood Urea Nitrogen 13 mg/dL (8-23); Calcium 9.1 mg/dL (8.5-10.5); Carbon Dioxide 24 mmol/L (22-29); Chloride 104 mmol/L (98-107); Creatinine Clr Calc Pharmacy 55.4559; Globulin 2.5 g/dL (1.3-4.6); Glucose 95 mg/dL (65-115); Lactate Dehydrogenase 183 U/L (135-214); Osmolality Calculated 286 mOsm/kg (285-295); Potassium 4.3 mmol/L (3.5-5.1); Sodium 138 mmol/L (136-145); Total Bilirubin 0.3 mg/dL (0.15-1.2); Total Protein 6.7 g/dL (6.6-8.7)
[2022-02-15] MEDS: sodium chloride 0.9% 250 ML 75 ML IV (11:32)
[2022-02-15] MEDS: acetaminophen 325 mg Tablet 650 MG PO (11:35)
[2022-02-15] MEDS: OLANZapine 5 mg TABLET PO (11:36)
[2022-02-15] MEDS: palonosetron 0.25 mg/5 mL SDV IVP (11:37)
[2022-02-15] MEDS: famotidine 20 mg/2 mL INJ IVP (11:47)
[2022-02-15] MEDS: diphenhydrAMINE 50 mg/mL SDV 1mL 25 MG IVP (11:48)
[2022-02-15] MEDS: fosaprepitant 150 MG in sodium chloride 0.9% 150 ML 300 MG IV (11:55)
[2022-02-15] MEDS: rituximab-abbs 500 MG, rituximab-abbs 150 MG in sodium chloride 0.9% 500 ML 188.33 MG IV (12:26)
[2022-02-15 12:32] VITALS: BP 139/69; PULSE 70; RESP 18; TEMP 36.3; O2SAT 96
[2022-02-15 13:00] VITALS: BP 114/68; PULSE 68; RESP 18; TEMP 36.6; O2SAT 96
[2022-02-15 13:30] VITALS: BP 133/71; PULSE 75; RESP 18; TEMP 36.6; O2SAT 96
[2022-02-15 14:00] VITALS: BP 132/75; PULSE 72; RESP 18; TEMP 36.6; O2SAT 96
[2022-02-15 15:00] VITALS: BP 126/78; PULSE 72; RESP 18; TEMP 36.6; O2SAT 96
[2022-02-15] MEDS: DOXOrubicin 2 mg/ml MDV 84 MG IVP (15:04)
[2022-02-15] MEDS: pegfilgrastim 6 mg/0.6 mL Kit (onpro) SUBCUT (15:34)
== END 2022-02-16 23:59 | disposition home or self-care (01) ==
PROVIDERS: Nurse Practitioner; Nurse Practitioner Family; PCP Family Medicine; Visit Provider Internal Medicine Medical Oncology
DX: Z51.12 Encounter for antineoplastic immunotherapy (principal); C85.11 Unspecified B-cell lymphoma, lymph nodes of head, face, and neck; D70.1 Agranulocytosis secondary to cancer chemotherapy; T45.1X5A Adverse effect of antineoplastic and immunosuppressive drugs, initial encounter
CPT/HCPCS: 36591; 80053; 82784; 83615; 84550; 85025; 86705; 86706; 86709; 86803; 87340; 96367; 96375; 96377; 96401; 96409; 96413; 96415; 96417; 99214; 99215; J1100; J1200; J1453; J2469; J2506; J3490; J7040; J7050; J9000; J9070; J9370; Q5115

== ENCOUNTER 2022-03-17 09:00 | Oncology outpatient (recurring) (ONCR) | payer MEDICARE, BC, SELFPAY ==
[2022-03-10 08:20] LABS: Eosinophils # 0.2 10^3/uL (0.0-0.8); Eosinophils % 4.6 %; Hematocrit 34.6 % (37.0-47.0); Hemoglobin 11.5 g/dL (11.5-15.3); Lymphocytes # 0.9 10^3/uL (0.8-4.8); Lymphocytes % 22.5 %; Mean Corpuscular HGB Conc 33.2 g/dL (30.0-36.0); Mean Corpuscular Hemoglobin 32.5 pg (28.0-34.0); Mean Corpuscular Volume 97.7 fl (81-99); Mean Platelet Volume 9.6 fL (7.4-10.4); Monocytes # 0.7 10^3/uL (0.2-0.9); Monocytes % 16.4 %; Neutrophils # 2.28 10^3/uL (1.8-7.7); Nucleated Red Blood Cells % 0 %; Platelet Count 172 10^3/cmm (130-400); Red Blood Count 3.54 10^6/uL (4.1-5.3); Red Cell Distribution Width 16.8 % (12.1-15.1); White Blood Count 4.1 10^3/uL (4.0-10.0)
[2022-03-10 09:14] LABS: Alanine Aminotransferase 11 U/L (0-33); Albumin Level 4.1 g/dL (3.5-5.2); Alkaline Phosphatase 82 U/L (35-105); Anion Gap 13.9 (5-19); Aspartate Amino Transferase 15 U/L (0-32); Blood Urea Nitrogen 11 mg/dL (8-23); Carbon Dioxide 24 mmol/L (22-29); Chloride 105 mmol/L (98-107); Globulin 2.3 g/dL (1.3-4.6); Glucose 100 mg/dL (65-115); Lactate Dehydrogenase 171 U/L (135-214); Osmolality Calculated 287 mOsm/kg (285-295); Potassium 3.9 mmol/L (3.5-5.1); Sodium 139 mmol/L (136-145); Total Bilirubin 0.2 mg/dL (0.15-1.2); Total Protein 6.4 g/dL (6.6-8.7)
[2022-03-10] MEDS: sodium chloride 0.9% 250 ML 100 ML IV (09:31)
[2022-03-10] MEDS: OLANZapine 5 mg TABLET PO (09:32)
[2022-03-10] MEDS: acetaminophen 325 mg Tablet 650 MG PO (09:32)
[2022-03-10] MEDS: diphenhydrAMINE 50 mg/mL SDV 1mL 25 MG IVP (09:33)
[2022-03-10] MEDS: famotidine 20 mg/2 mL INJ IVP (09:33)
[2022-03-10] MEDS: palonosetron 0.25 mg/5 mL SDV IVP (09:42)
[2022-03-10] MEDS: fosaprepitant 150 MG in sodium chloride 0.9% 150 ML 300 MG IV (09:43)
[2022-03-10] MEDS: rituximab-abbs 500 MG, rituximab-abbs 150 MG in sodium chloride 0.9% 500 ML 86 MG IV (10:42)
[2022-03-10 10:45] VITALS: BP 136/74; PULSE 62; TEMP 36.4; O2SAT 98
[2022-03-10 11:15] VITALS: BP 124/71; PULSE 62; TEMP 36.2; O2SAT 96
[2022-03-10 11:53] VITALS: BP 121/72; PULSE 61; TEMP 36.2; O2SAT 96
[2022-03-10 12:15] VITALS: BP 118/68; PULSE 62; TEMP 36.2; O2SAT 95
[2022-03-10] MEDS: DOXOrubicin 2 mg/ml MDV 84 MG IVP (13:19)
[2022-03-10] MEDS: pegfilgrastim 6 mg/0.6 mL Kit (onpro) SUBCUT (15:05)
[2022-03-10 15:20] VITALS: BP 121/67; PULSE 73; TEMP 36.2; O2SAT 96
[2022-03-17 09:07] LABS: Hematocrit 32.2 % (37.0-47.0); Hemoglobin 10.7 g/dL (11.5-15.3); Mean Corpuscular HGB Conc 33.2 g/dL (30.0-36.0); Mean Corpuscular Hemoglobin 32.3 pg (28.0-34.0); Mean Corpuscular Volume 97.3 fl (81-99); Platelet Count 94 10^3/cmm (130-400); Red Blood Count 3.31 10^6/uL (4.1-5.3); White Blood Count 3.1 10^3/uL (4.0-10.0)
[2022-03-17 10:13] LABS: Absolute Segmented Neutrophil 1.8 10/cmm (1.6-7.1); Segmented Neutrophils 58 %; Total Cells Counted 100 (0-100)
[2022-03-17 10:14] LABS: Absolute Eosinophils 0.1 10^3/cmm (0.0-0.7); Absolute Neutrophil 1.9 10^3/cmm (1.4-6.5); Band Neutrophils Absolute 0.1 10^3/cmm (0.0-1.2); Eosinophils 4 %; Lymphocytes 22 %; Lymphocytes Absolute 0.7 10^3/cmm (1.2-3.4); Monocytes Absolute 0.4 10^3/cmm (0.1-0.6); Platelet Estimate Decreased (Normal)
== END 2022-03-18 23:59 | disposition home or self-care (01) ==
PROVIDERS: PCP Family Medicine; Visit Provider Internal Medicine Medical Oncology
DX: C85.11 Unspecified B-cell lymphoma, lymph nodes of head, face, and neck (principal)
CPT/HCPCS: 36415; 36591; 80053; 83615; 85007; 85025; 96367; 96372; 96375; 96377; 96411; 96413; 96415; 96417; J1100; J1200; J1453; J2469; J2506; J3490; J7040; J7050; J9000; J9070; J9370; Q5115

== ENCOUNTER 2022-04-14 13:15 | Oncology outpatient (recurring) (ONCR) | payer MEDICARE, BC, SELFPAY ==
[2022-03-24 09:05] LABS: Basophils # 0.1 10^3/uL (0.0-0.1); Basophils % 0.9 %; Eosinophils # 0.1 10^3/uL (0.0-0.8); Eosinophils % 1.8 %; Hematocrit 34.5 % (37.0-47.0); Hemoglobin 11.4 g/dL (11.5-15.3); Lymphocytes # 0.8 10^3/uL (0.8-4.8); Lymphocytes % 13.9 %; Mean Corpuscular Hemoglobin 32.9 pg (28.0-34.0); Mean Corpuscular Volume 99.7 fl (81-99); Mean Platelet Volume 9.7 fL (7.4-10.4); Monocytes # 0.7 10^3/uL (0.2-0.9); Monocytes % 13.2 %; Neutrophils # 3.71 10^3/uL (1.8-7.7); Neutrophils % 66.3 %; Nucleated Red Blood Cells % 0 %; Platelet Count 135 10^3/cmm (130-400); Red Blood Count 3.46 10^6/uL (4.1-5.3); Red Cell Distribution Width 17.9 % (12.1-15.1); White Blood Count 5.6 10^3/uL (4.0-10.0)
[2022-03-24 09:07] VITALS: BMI 31.1
[2022-03-31 08:43] LABS: Basophils # 0.1 10^3/uL (0.0-0.1); Basophils % 1.4 %; Eosinophils # 0.1 10^3/uL (0.0-0.8); Eosinophils % 1.7 %; Hemoglobin 11.8 g/dL (11.5-15.3); Lymphocytes # 0.7 10^3/uL (0.8-4.8); Lymphocytes % 16.1 %; Mean Corpuscular HGB Conc 33.7 g/dL (30.0-36.0); Mean Corpuscular Hemoglobin 33.5 pg (28.0-34.0); Mean Corpuscular Volume 99.4 fl (81-99); Mean Platelet Volume 9.8 fL (7.4-10.4); Monocytes # 0.7 10^3/uL (0.2-0.9); Monocytes % 16.3 %; Neutrophils # 2.66 10^3/uL (1.8-7.7); Neutrophils % 63.8 %; Nucleated Red Blood Cells % 0 %; Platelet Count 184 10^3/cmm (130-400); Red Blood Count 3.52 10^6/uL (4.1-5.3); Red Cell Distribution Width 18.2 % (12.1-15.1); White Blood Count 4.2 10^3/uL (4.0-10.0)
[2022-03-31 09:00] VITALS: BP 140/78; PULSE 78; RESP 18; TEMP 36.1; O2SAT 98
[2022-03-31 09:03] LABS: Alanine Aminotransferase 23 U/L (0-33); Albumin Level 4.1 g/dL (3.5-5.2); Alkaline Phosphatase 87 U/L (35-105); Anion Gap 13.8 (5-19); Aspartate Amino Transferase 19 U/L (0-32); Blood Urea Nitrogen 7 mg/dL (8-23); Calcium 9.4 mg/dL (8.5-10.5); Carbon Dioxide 25 mmol/L (22-29); Chloride 103 mmol/L (98-107); Globulin 2.5 g/dL (1.3-4.6); Glucose 125 mg/dL (65-115); Lactate Dehydrogenase 161 U/L (135-214); Osmolality Calculated 285 mOsm/kg (285-295); Potassium 3.8 mmol/L (3.5-5.1); Sodium 138 mmol/L (136-145); Total Bilirubin 0.2 mg/dL (0.15-1.2); Total Protein 6.6 g/dL (6.6-8.7)
[2022-03-31] MEDS: acetaminophen 325 mg Tablet 650 MG PO (10:30)
[2022-03-31] MEDS: OLANZapine 5 mg TABLET PO (10:31)
[2022-03-31] MEDS: sodium chloride 0.9% 250 ML 75 ML IV (10:32)
[2022-03-31] MEDS: diphenhydrAMINE 50 mg/mL SDV 1mL 25 MG IVP (10:32)
[2022-03-31] MEDS: famotidine 20 mg/2 mL INJ IVP (10:33)
[2022-03-31] MEDS: palonosetron 0.25 mg/5 mL SDV IVP (10:34)
[2022-03-31] MEDS: fosaprepitant 150 MG in sodium chloride 0.9% 150 ML 300 MG IV (11:10)
[2022-03-31] MEDS: rituximab-abbs 500 MG, rituximab-abbs 150 MG in sodium chloride 0.9% 500 ML 188.33 MG IV (11:41)
--- NOTE | 2022-03-31 12:03 | PC.PHAR ---
dr multani would like to reduce vincristine to 1mg from 2mg. will recreate the infusion.
[2022-03-31] MEDS: DOXOrubicin 2 mg/ml MDV 84 MG IVP (14:45)
[2022-03-31] MEDS: pegfilgrastim 6 mg/0.6 mL Kit (onpro) SUBCUT (16:07)
[2022-03-31] MEDS: SODIUM CHLORIDE 0.9% IV (16:24)
[2022-03-31] MEDS: VINCRISTINE IV (16:24)
[2022-03-31 16:58] VITALS: BP 120/69; PULSE 72; RESP 18; TEMP 35.6; O2SAT 98
[2022-03-31 17:00] VITALS: BP 120/78; PULSE 72; RESP 18; TEMP 36.6
--- NOTE | 2022-04-07 14:16 | PC.NURSE ---
Patient states she is doing well with exception of feeling fatigued. CBC drawn with no issues.raisa
[2022-04-07 14:24] LABS: Basophils # 0.1 10^3/uL (0.0-0.1); Basophils % 1.2 %; Eosinophils # 0.2 10^3/uL (0.0-0.8); Eosinophils % 4.9 %; Hematocrit 32.2 % (37.0-47.0); Hemoglobin 10.9 g/dL (11.5-15.3); Lymphocytes # 0.8 10^3/uL (0.8-4.8); Lymphocytes % 20.4 %; Mean Corpuscular HGB Conc 33.9 g/dL (30.0-36.0); Mean Corpuscular Hemoglobin 34.4 pg (28.0-34.0); Mean Corpuscular Volume 101.6 fl (81-99); Mean Platelet Volume 10.9 fL (7.4-10.4); Monocytes # 0.5 10^3/uL (0.2-0.9); Monocytes % 12.4 %; Neutrophils # 2.44 10^3/uL (1.8-7.7); Neutrophils % 59.2 %; Nucleated Red Blood Cells % 0 %; Platelet Count 96 10^3/cmm (130-400); Red Blood Count 3.17 10^6/uL (4.1-5.3); Red Cell Distribution Width 17.3 % (12.1-15.1); White Blood Count 4.1 10^3/uL (4.0-10.0)
[2022-04-14 13:39] LABS: Basophils # 0.1 10^3/uL (0.0-0.1); Basophils % 0.9 %; Eosinophils # 0.1 10^3/uL (0.0-0.8); Eosinophils % 0.9 %; Hematocrit 37.8 % (37.0-47.0); Hemoglobin 12.6 g/dL (11.5-15.3); Lymphocytes # 1.5 10^3/uL (0.8-4.8); Lymphocytes % 15.9 %; Mean Corpuscular HGB Conc 33.3 g/dL (30.0-36.0); Mean Corpuscular Hemoglobin 34.1 pg (28.0-34.0); Mean Corpuscular Volume 102.4 fl (81-99); Mean Platelet Volume 9.5 fL (7.4-10.4); Monocytes # 1.5 10^3/uL (0.2-0.9); Monocytes % 15.3 %; Neutrophils # 6.13 10^3/uL (1.8-7.7); Neutrophils % 64.1 %; Nucleated Red Blood Cells % 0.2 %; Platelet Count 200 10^3/cmm (130-400); Red Blood Count 3.69 10^6/uL (4.1-5.3); Red Cell Distribution Width 17.9 % (12.1-15.1); White Blood Count 9.6 10^3/uL (4.0-10.0)
== END 2022-04-18 23:59 | disposition home or self-care (01) ==
PROVIDERS: PCP Family Medicine; Visit Provider Internal Medicine Medical Oncology
DX: C85.11 Unspecified B-cell lymphoma, lymph nodes of head, face, and neck (principal)
CPT/HCPCS: 36591; 80053; 83615; 85025; 96367; 96375; 96377; 96402; 96413; 96415; 96417; 99214; J1100; J1200; J1453; J2469; J2506; J3490; J7040; J7050; J9000; J9070; J9370; Q5115

== ENCOUNTER 2022-04-21 08:26 | Oncology outpatient (recurring) (ONCR) | payer MEDICARE, BC, SELFPAY ==
[2022-04-21 09:12] LABS: Basophils # 0.1 10^3/uL (0.0-0.1); Basophils % 1.1 %; Eosinophils # 0.1 10^3/uL (0.0-0.8); Eosinophils % 1.9 %; Hemoglobin 11.3 g/dL (11.5-15.3); Lymphocytes # 0.8 10^3/uL (0.8-4.8); Lymphocytes % 15.4 %; Mean Corpuscular HGB Conc 33.2 g/dL (30.0-36.0); Mean Corpuscular Hemoglobin 34.6 pg (28.0-34.0); Mean Platelet Volume 9.4 fL (7.4-10.4); Monocytes # 0.8 10^3/uL (0.2-0.9); Monocytes % 15.8 %; Neutrophils # 3.46 10^3/uL (1.8-7.7); Nucleated Red Blood Cells % 0 %; Platelet Count 195 10^3/cmm (130-400); Red Blood Count 3.27 10^6/uL (4.1-5.3); Red Cell Distribution Width 17.4 % (12.1-15.1); White Blood Count 5.3 10^3/uL (4.0-10.0)
[2022-04-21 09:33] LABS: Alanine Aminotransferase 16 U/L (0-33); Albumin Level 4.3 g/dL (3.5-5.2); Alkaline Phosphatase 87 U/L (35-105); Anion Gap 13.3 (5-19); Aspartate Amino Transferase 15 U/L (0-32); Blood Urea Nitrogen 11 mg/dL (8-23); Calcium 9.3 mg/dL (8.5-10.5); Carbon Dioxide 24 mmol/L (22-29); Chloride 105 mmol/L (98-107); Globulin 2.2 g/dL (1.3-4.6); Glucose 84 mg/dL (65-115); Lactate Dehydrogenase 173 U/L (135-214); Osmolality Calculated 285 mOsm/kg (285-295); Potassium 4.3 mmol/L (3.5-5.1); Sodium 138 mmol/L (136-145); Total Bilirubin 0.2 mg/dL (0.15-1.2); Total Protein 6.5 g/dL (6.6-8.7)
[2022-04-21] MEDS: sodium chloride 0.9% 250 ML 100 ML IV (10:58)
[2022-04-21] MEDS: palonosetron 0.25 mg/5 mL SDV IVP (10:58)
[2022-04-21] MEDS: famotidine 20 mg/2 mL INJ IVP (10:59)
[2022-04-21] MEDS: acetaminophen 325 mg Tablet 650 MG PO (11:00)
[2022-04-21] MEDS: diphenhydrAMINE 50 mg/mL SDV 1mL 25 MG IVP (11:00)
[2022-04-21] MEDS: OLANZapine 5 mg TABLET PO (11:00)
[2022-04-21] MEDS: fosaprepitant 150 MG in sodium chloride 0.9% 150 ML 300 MG IV (11:33)
[2022-04-21 12:10] VITALS: BP 143/75; PULSE 67; RESP 16; O2SAT 97
[2022-04-21 12:40] VITALS: BP 130/70; PULSE 76; O2SAT 96
[2022-04-21 13:10] VITALS: BP 119/66; PULSE 80; RESP 17; O2SAT 98
[2022-04-21 13:40] VITALS: BP 97/57; PULSE 67; RESP 17; O2SAT 93
[2022-04-21] MEDS: DOXOrubicin 2 mg/ml MDV 92 MG IVP (15:32)
[2022-04-21] MEDS: SODIUM CHLORIDE 0.9% IV (15:52)
[2022-04-21] MEDS: VINCRISTINE IV (15:52)
[2022-04-21 15:54] VITALS: BP 117/63; PULSE 73; O2SAT 95
[2022-04-21] MEDS: pegfilgrastim 6 mg/0.6 mL Kit (onpro) SUBCUT (16:56)
[2022-04-21 17:10] VITALS: BP 118/68; PULSE 81; O2SAT 96
== END 2022-04-22 11:28 | disposition home or self-care (01) ==
PROVIDERS: PCP Family Medicine; Visit Provider Internal Medicine Medical Oncology
DX: C85.11 Unspecified B-cell lymphoma, lymph nodes of head, face, and neck; Z51.12 Encounter for antineoplastic immunotherapy; D70.1 Agranulocytosis secondary to cancer chemotherapy; T45.1X5A Adverse effect of antineoplastic and immunosuppressive drugs, initial encounter; D69.59 Other secondary thrombocytopenia; R53.0 Neoplastic (malignant) related fatigue; Z79.52 Long term (current) use of systemic steroids; Z79.899 Other long term (current) drug therapy; Z51.11 Encounter for antineoplastic chemotherapy; G62.0 Drug-induced polyneuropathy
CPT/HCPCS: 80053; 83615; 85025; 96367; 96375; 96377; 96413; 96415; 96417; 99214; J1100; J1200; J1453; J2469; J2506; J3490; J7040; J7050; J9000; J9070; J9370; Q5115

== ENCOUNTER → 2022-05-11 07:54 | Outpatient (BNVA) | payer MEDICARE, BC, SELFPAY | PROVIDERS: PCP Family Medicine; Visit Provider Nurse Practitioner | DX: C85.11 Unspecified B-cell lymphoma, lymph nodes of head, face, and neck (principal) | CPT/HCPCS: 99214 ==

== ENCOUNTER 2022-05-18 14:00 | Oncology outpatient (recurring) (ONCR) | payer MEDICARE, BC, SELFPAY ==
[2022-04-28 09:02] LABS: Basophils % 1.3 %; Eosinophils # 0.2 10^3/uL (0.0-0.8); Eosinophils % 6.7 %; Hemoglobin 10.6 g/dL (11.5-15.3); Lymphocytes # 0.6 10^3/uL (0.8-4.8); Lymphocytes % 17.8 %; Mean Corpuscular HGB Conc 33.1 g/dL (30.0-36.0); Mean Corpuscular Hemoglobin 34.9 pg (28.0-34.0); Mean Corpuscular Volume 105.3 fl (81-99); Mean Platelet Volume 10.6 fL (7.4-10.4); Monocytes # 0.4 10^3/uL (0.2-0.9); Monocytes % 11.1 %; Neutrophils # 1.95 10^3/uL (1.8-7.7); Neutrophils % 61.8 %; Nucleated Red Blood Cells % 0 %; Platelet Count 89 10^3/cmm (130-400); Red Blood Count 3.04 10^6/uL (4.1-5.3); White Blood Count 3.2 10^3/uL (4.0-10.0)
[2022-04-28 09:37] LABS: Alanine Aminotransferase 15 U/L (0-33); Alkaline Phosphatase 99 U/L (35-105); Anion Gap 14.7 (5-19); Aspartate Amino Transferase 11 U/L (0-32); Blood Urea Nitrogen 16 mg/dL (8-23); Calcium 8.9 mg/dL (8.5-10.5); Carbon Dioxide 26 mmol/L (22-29); Chloride 100 mmol/L (98-107); Globulin 2.1 g/dL (1.3-4.6); Glucose 80 mg/dL (65-115); Osmolality Calculated 284 mOsm/kg (285-295); Potassium 3.7 mmol/L (3.5-5.1); Sodium 137 mmol/L (136-145); Total Bilirubin 0.4 mg/dL (0.15-1.2); Total Protein 6.1 g/dL (6.6-8.7)
[2022-04-28 10:02] LABS: Slide Review Slide Review Perform
[2022-05-11 08:27] LABS: Basophils # 0.1 10^3/uL (0.0-0.1); Basophils % 1.3 %; Eosinophils % 0.8 %; Hematocrit 33.6 % (37.0-47.0); Hemoglobin 11.2 g/dL (11.5-15.3); Lymphocytes # 0.6 10^3/uL (0.8-4.8); Lymphocytes % 15.3 %; Mean Corpuscular HGB Conc 33.3 g/dL (30.0-36.0); Mean Corpuscular Hemoglobin 35.4 pg (28.0-34.0); Mean Corpuscular Volume 106.3 fl (81-99); Mean Platelet Volume 9.3 fL (7.4-10.4); Monocytes # 0.7 10^3/uL (0.2-0.9); Monocytes % 18.6 %; Neutrophils # 2.48 10^3/uL (1.8-7.7); Nucleated Red Blood Cells % 0 %; Platelet Count 175 10^3/cmm (130-400); Red Blood Count 3.16 10^6/uL (4.1-5.3); White Blood Count 3.9 10^3/uL (4.0-10.0)
[2022-05-11 08:52] LABS: Alanine Aminotransferase 19 U/L (0-33); Albumin Level 3.9 g/dL (3.5-5.2); Alkaline Phosphatase 90 U/L (35-105); Anion Gap 13.9 (5-19); Aspartate Amino Transferase 17 U/L (0-32); Blood Urea Nitrogen 13 mg/dL (8-23); Calcium 9.3 mg/dL (8.5-10.5); Carbon Dioxide 27 mmol/L (22-29); Chloride 103 mmol/L (98-107); Globulin 2.4 g/dL (1.3-4.6); Glucose 142 mg/dL (65-115); Osmolality Calculated 293 mOsm/kg (285-295); Potassium 3.9 mmol/L (3.5-5.1); Sodium 140 mmol/L (136-145); Total Bilirubin 0.2 mg/dL (0.15-1.2); Total Protein 6.3 g/dL (6.6-8.7)
[2022-05-11] MEDS: OLANZapine 5 mg TABLET PO (10:25)
[2022-05-11] MEDS: acetaminophen 325 mg Tablet 650 MG PO (10:26)
[2022-05-11] MEDS: sodium chloride 0.9% 250 ML 100 ML IV (10:26)
[2022-05-11] MEDS: palonosetron 0.25 mg/5 mL SDV IVP (10:28)
[2022-05-11] MEDS: diphenhydrAMINE 50 mg/mL SDV 1mL 25 MG IVP (10:28)
[2022-05-11] MEDS: famotidine 20 mg/2 mL INJ IVP (10:28)
[2022-05-11] MEDS: fosaprepitant 150 MG in sodium chloride 0.9% 150 ML 300 MG IV (10:31)
[2022-05-11 11:32] VITALS: BP 128/76; PULSE 67; RESP 16; TEMP 36.4; O2SAT 97
[2022-05-11 12:00] VITALS: BP 120/75; PULSE 67; RESP 16; TEMP 36.5; O2SAT 95
[2022-05-11 12:30] VITALS: BP 144/76; PULSE 72; RESP 16; TEMP 36.8; O2SAT 96
[2022-05-11 13:00] VITALS: BP 131/76; PULSE 80; RESP 16; TEMP 36.9; O2SAT 95
[2022-05-11] MEDS: DOXOrubicin 2 mg/ml MDV 92 MG IVP (14:03)
[2022-05-11] MEDS: VINCRISTINE IV (14:17)
[2022-05-11] MEDS: SODIUM CHLORIDE 0.9% IV (14:17)
[2022-05-11] MEDS: pegfilgrastim 6 mg/0.6 mL Kit (onpro) SUBCUT (14:36)
[2022-05-11 15:31] VITALS: BP 130/74; PULSE 90; TEMP 36.6; O2SAT 95
== END 2022-05-18 23:59 | disposition home or self-care (01) ==
PROVIDERS: PCP Family Medicine; Visit Provider Internal Medicine Medical Oncology
DX: C85.11 Unspecified B-cell lymphoma, lymph nodes of head, face, and neck
CPT/HCPCS: 36591; 80053; 85025; 96367; 96375; 96377; 96411; 96413; 96415; 96417; 99214; J1100; J1200; J1453; J2469; J2506; J3490; J7040; J7050; J9000; J9070; J9370; Q5115

== ENCOUNTER 2022-06-08 09:30 | Oncology outpatient (recurring) (ONCR) | payer MEDICARE, BC, SELFPAY ==
[2022-05-25 14:18] LABS: Basophils # 0.1 10^3/uL (0.0-0.1); Basophils % 0.7 %; Eosinophils % 0.3 %; Hematocrit 34.5 % (37.0-47.0); Hemoglobin 11.5 g/dL (11.5-15.3); Lymphocytes # 0.8 10^3/uL (0.8-4.8); Lymphocytes % 8.5 %; Mean Corpuscular HGB Conc 33.3 g/dL (30.0-36.0); Mean Corpuscular Hemoglobin 35.8 pg (28.0-34.0); Mean Corpuscular Volume 107.5 fl (81-99); Monocytes # 1.1 10^3/uL (0.2-0.9); Monocytes % 12.9 %; Neutrophils # 6.66 10^3/uL (1.8-7.7); Neutrophils % 75.6 %; Nucleated Red Blood Cells % 0 %; Platelet Count 170 10^3/cmm (130-400); Red Blood Count 3.21 10^6/uL (4.1-5.3); Red Cell Distribution Width 13.9 % (12.1-15.1); White Blood Count 8.8 10^3/uL (4.0-10.0)
[2022-05-25 14:39] LABS: Alanine Aminotransferase 13 U/L (0-33); Albumin Level 3.8 g/dL (3.5-5.2); Alkaline Phosphatase 104 U/L (35-105); Aspartate Amino Transferase 14 U/L (0-32); Blood Urea Nitrogen 8 mg/dL (8-23); Carbon Dioxide 24 mmol/L (22-29); Chloride 103 mmol/L (98-107); Globulin 2.6 g/dL (1.3-4.6); Glucose 90 mg/dL (65-115); Osmolality Calculated 284 mOsm/kg (285-295); Sodium 138 mmol/L (136-145); Total Bilirubin 0.2 mg/dL (0.15-1.2); Total Protein 6.4 g/dL (6.6-8.7)
[2022-05-25 14:41] LABS: Anion Gap 15.4 (5-19)
[2022-05-25 14:42] LABS: Lactate Dehydrogenase 213 U/L (135-214); Potassium 4.4 mmol/L (3.5-5.1)
[2022-06-01 14:14] LABS: Basophils % 0.5 %; Eosinophils # 0.1 10^3/uL (0.0-0.8); Eosinophils % 1.2 %; Hematocrit 32.4 % (37.0-47.0); Lymphocytes # 0.9 10^3/uL (0.8-4.8); Lymphocytes % 15.8 %; Mean Corpuscular Hemoglobin 35.6 pg (28.0-34.0); Mean Corpuscular Volume 104.9 fl (81-99); Mean Platelet Volume 9.8 fL (7.4-10.4); Monocytes # 0.9 10^3/uL (0.2-0.9); Monocytes % 14.8 %; Neutrophils # 4.01 10^3/uL (1.8-7.7); Neutrophils % 67.2 %; Nucleated Red Blood Cells % 0 %; Platelet Count 185 10^3/cmm (130-400); Red Blood Count 3.09 10^6/uL (4.1-5.3)
[2022-06-01 14:24] LABS: Alanine Aminotransferase 18 U/L (0-33); Albumin Level 4.2 g/dL (3.5-5.2); Alkaline Phosphatase 84 U/L (35-105); Aspartate Amino Transferase 18 U/L (0-32); Blood Urea Nitrogen 9 mg/dL (8-23); Calcium 9.6 mg/dL (8.5-10.5); Carbon Dioxide 24 mmol/L (22-29); Chloride 104 mmol/L (98-107); Globulin 2.4 g/dL (1.3-4.6); Glucose 84 mg/dL (65-115); Osmolality Calculated 286 mOsm/kg (285-295); Sodium 139 mmol/L (136-145); Total Bilirubin 0.2 mg/dL (0.15-1.2); Total Protein 6.6 g/dL (6.6-8.7)
== END 2022-06-18 23:59 | disposition home or self-care (01) ==
PROVIDERS: PCP Family Medicine; Visit Provider Internal Medicine Medical Oncology
DX: C85.11 Unspecified B-cell lymphoma, lymph nodes of head, face, and neck
CPT/HCPCS: 36591; 80053; 83615; 85025

== ENCOUNTER → 2022-07-11 12:26 | Outpatient (BNVA) | payer MEDICARE, BC, SELFPAY | PROVIDERS: PCP Family Medicine; Visit Provider Internal Medicine Medical Oncology | DX: C85.11 Unspecified B-cell lymphoma, lymph nodes of head, face, and neck (principal) | CPT/HCPCS: 99214 ==

== ENCOUNTER 2022-07-12 08:16 | Oncology outpatient (recurring) (ONCR) | payer MEDICARE, BC, SELFPAY ==
[2022-07-11 13:19] LABS: Basophils % 0.7 %; Eosinophils # 0.3 10^3/uL (0.0-0.8); Hematocrit 38.9 % (37.0-47.0); Hemoglobin 12.9 g/dL (11.5-15.3); Lymphocytes % 18.1 %; Mean Corpuscular HGB Conc 33.2 g/dL (30.0-36.0); Mean Corpuscular Hemoglobin 33.4 pg (28.0-34.0); Mean Corpuscular Volume 100.8 fl (81-99); Mean Platelet Volume 10.4 fL (7.4-10.4); Monocytes # 0.7 10^3/uL (0.2-0.9); Monocytes % 12.8 %; Neutrophils # 3.39 10^3/uL (1.8-7.7); Neutrophils % 62.2 %; Nucleated Red Blood Cells % 0 %; Platelet Count 180 10^3/cmm (130-400); Red Blood Count 3.86 10^6/uL (4.1-5.3); Red Cell Distribution Width 12.3 % (12.1-15.1); White Blood Count 5.5 10^3/uL (4.0-10.0)
[2022-07-11 13:56] LABS: Alanine Aminotransferase 16 U/L (0-33); Albumin Level 4.2 g/dL (3.5-5.2); Alkaline Phosphatase 108 U/L (35-105); Aspartate Amino Transferase 20 U/L (0-32); Blood Urea Nitrogen 9 mg/dL (8-23); Calcium 9.6 mg/dL (8.5-10.5); Carbon Dioxide 27 mmol/L (22-29); Chloride 103 mmol/L (98-107); Globulin 2.7 g/dL (1.3-4.6); Glucose 108 mg/dL (65-115); Lactate Dehydrogenase 164 U/L (135-214); Osmolality Calculated 283 mOsm/kg (285-295); Sodium 137 mmol/L (136-145); Total Bilirubin 0.3 mg/dL (0.15-1.2); Total Protein 6.9 g/dL (6.6-8.7)
--- NOTE | 2022-07-12 09:06 | N.ONRAD NP_ITS ---
Radiation Oncology Consultation Patient Name: Negrita Varghese Date of : 1950 Date of Service: 07/12/2022 Attending Physician: Gerardo Blake M.D. Negrita Harris was seen in consultation this morning at the request of Doug Giron M.D. for consideration of consolidative radiotherapy for the management of a stage IIA non-Hodgkin lymphoma. He was initially evaluated in September for a midline neck mass. A neck CT scan completed on October 08, 2021 described a lobulated midline mass measuring 4.5 cm x 6.1 cm x 4.6 cm with probable invasion into the thyroid gland and displacement of the right internal jugular vein. A fine-needle aspiration obtained on October 21, 2021 was non-diagnostic. An incisional biopsy was performed by Dexter Madison M.D. on November 04, 2021. The pathology report diagnosed a high-grade B-cell lymphoma (triple hit negative). A PET scan ordered on November 20, 2021 demonstrated an irregular mass anterior to the trachea (SUV 21.5) and a superior mediastinal lymph node measuring 1.5 cm (SUV 10.8). She was prescribed 4 cycles of R-CHOP chemotherapy between the dates of January 25, 2022 through March 31, 2022. A restaging PET scan requested on April 16, 2022 identified a 1.7 cm anterior cervical mass with an SUV of 8.6 indicating a partial response to chemotherapy. An additional 2 cycles of R-CHOP was administered. The 6th cycle was delivered on May 11, 2022. Repeat PET imaging obtained on June 28, 2022 revealed persistent disease. The mass now measures 1.3 cm with an SUV of 3.4. I discussed with the Ms. Harris The National Comprehensive Cancer Network Guidelines for non-bulky diffuse large B-cell lymphoma and involved site radiotherapy in patients achieving a partial response. I anticipate a 5 week course of treatment. A computed tomographic radiotherapy planning scan in the treatment position will be acquired and co-registered to the patient's pre-chemotherapy PET scan to identify the clinical volumes. The potential toxicities of neck radiotherapy were reviewed. The patient has verbalized understanding would like to proceed as recommended. Her medical treatment plan was discussed with Doug Giron M.D. Signed by: Gerardo Blake 08/23/2022 2:52:32 PM
== END 2022-07-19 23:59 | disposition home or self-care (01) ==
PROVIDERS: PCP Family Medicine; Visit Provider Internal Medicine Medical Oncology
DX: C85.11 Unspecified B-cell lymphoma, lymph nodes of head, face, and neck; Z92.21 Personal history of antineoplastic chemotherapy
CPT/HCPCS: 36591; 80053; 83615; 85025; 99205; 99214

== ENCOUNTER 2022-08-16 14:25 | Oncology outpatient (recurring) (ONCR) | payer MEDICARE, BC, SELFPAY ==
--- NOTE | 2022-07-21 | CT_ITS ---
Guided Bronchoscopy Planning CT images; total exam DLP: 1281.92 mGy-cm MTDD
[2022-07-21] MEDS: iohexol 350 mg/mL 100 mL Btl IV (11:22)
--- NOTE | 2022-07-26 15:15 | ONCRAD TMN_ITS ---
Radiation Oncology Treatment Management Note Patient Name: Negrita Varghese Date of : 1950 Date of Service: 07/26/2022 Attending Physician: Gerardo Blake M.D. Negrita Varghese is a 72year-old white female diagnosed with an [place] stage IIA non-Hodgkin lymphoma. He was initially evaluated in September for a midline neck mass. A neck CT scan completed on October 08, 2021 described a lobulated midline mass measuring 4.5 cm x 6.1 cm x 4.6 cm with probable invasion into the thyroid gland and displacement of the right internal jugular vein. A fine-needle aspiration obtained on October 21, 2021 was non-diagnostic. An incisional was performed by Dexter Madison M.D. on November 04, 2021. The pathology report diagnosed a high-grade B-cell lymphoma (triple hit negative). A PET scan ordered on November 20, 2021 demonstrated an irregular mass anterior to the trachea (SUV 21.5) and a superior mediastinal lymph node measuring 1.5 cm (SUV 10.8). She was prescribed 4 cycles of R-CHOP chemotherapy between the dates of January 25, 2022 through March 31, 2022. A restaging PET scan requested on April 16, 2022 identified a 1.7 cm anterior cervical mass with an SUV of 8.6 indicating a partial response to chemotherapy. An additional 2 cycles of R-CHOP was administered. The 6th cycle was delivered on May 11, 2022. Repeat PET imaging obtained on June 28, 2022 revealed persistent disease. The mass now measures 1.3 cm with an SUV of 3.4. The patient has received 4 Gy of a prescribed 50 Shine with an intensity modulated radiotherapy plan utilizing a step and shoot treatment technique. Upon review of systems, she denied any symptoms related to treatment. On physical examination, the patient weighed 162 lbs. Her temperature was 97.3 ???F and the blood pressure was 145/85 mmHg. The pulse was 78 bpm and her respiratory rate was 16. There was no erythema within the treatment mont[place]. Continue consolidation radiotherapy as prescribed. Signed by: Dr. Gerardo Blake 07/26/2022 3:13:36 PM
--- NOTE | 2022-08-02 15:01 | ONCRAD TMN_ITS ---
Radiation Oncology Treatment Management Note Patient Name: Negrita Varghese Date of : 1950 Date of Service: 08/02/2022 Attending Physician: Gerardo Blake M.D. Negrita Varghese is a 72year-old white female diagnosed with an [place] stage IIA non-Hodgkin lymphoma. He was initially evaluated in September for a midline neck mass. A neck CT scan completed on October 08, 2021 described a lobulated midline mass measuring 4.5 cm x 6.1 cm x 4.6 cm with probable invasion into the thyroid gland and displacement of the right internal jugular vein. A fine-needle aspiration obtained on October 21, 2021 was non-diagnostic. An incisional was performed by Dexter Madison M.D. on November 04, 2021. The pathology report diagnosed a high-grade B-cell lymphoma (triple hit negative). A PET scan ordered on November 20, 2021 demonstrated an irregular mass anterior to the trachea (SUV 21.5) and a superior mediastinal lymph node measuring 1.5 cm (SUV 10.8). She was prescribed 4 cycles of R-CHOP chemotherapy between the dates of January 25, 2022 through March 31, 2022. A restaging PET scan requested on April 16, 2022 identified a 1.7 cm anterior cervical mass with an SUV of 8.6 indicating a partial response to chemotherapy. An additional 2 cycles of R-CHOP were administered. The 6th cycle was delivered on May 11, 2022. Repeat PET imaging obtained on June 28, 2022 revealed persistent disease. The mass now measures 1.3 cm with an SUV of 3.4. The patient has received 14 Gy of a prescribed 50 Shine with an intensity modulated radiotherapy plan utilizing a step and shoot treatment technique. Upon review of systems, she denied any symptoms related to treatment. On physical examination, the patient weighed 163 lbs. Her temperature was 97.7 ???F and the blood pressure was 145/84 mmHg. The pulse was 71 bpm and her respiratory rate was 16. There was no erythema within the treatment montemayor. Continue consolidation radiotherapy as planned. Signed by: Dr. Gerardo Blake 08/02/2022 2:59:27 PM
--- NOTE | 2022-08-09 15:14 | ONCRAD TMN_ITS ---
Radiation Oncology Treatment Management Note Patient Name: Negrita Varghese Date of : 1950 Date of Service: 08/09/2022 Attending Physician: Gerardo Blake M.D. Negrita Varghese is a 72year-old white female diagnosed with an [place] stage IIA non-Hodgkin lymphoma. He was initially evaluated in September for a midline neck mass. A neck CT scan completed on October 08, 2021 described a lobulated midline mass measuring 4.5 cm x 6.1 cm x 4.6 cm with probable invasion into the thyroid gland and displacement of the right internal jugular vein. A fine-needle aspiration obtained on October 21, 2021 was non-diagnostic. An incisional was performed by Dexter Madison M.D. on November 04, 2021. The pathology report diagnosed a high-grade B-cell lymphoma (triple hit negative). A PET scan ordered on November 20, 2021 demonstrated an irregular mass anterior to the trachea (SUV 21.5) and a superior mediastinal lymph node measuring 1.5 cm (SUV 10.8). She was prescribed 4 cycles of R-CHOP chemotherapy between the dates of January 25, 2022 through March 31, 2022. A restaging PET scan requested on April 16, 2022 identified a 1.7 cm anterior cervical mass with an SUV of 8.6 indicating a partial response to chemotherapy. An additional 2 cycles of R-CHOP were administered. The 6th cycle was delivered on May 11, 2022. Repeat PET imaging obtained on June 28, 2022 revealed persistent disease. The mass now measures 1.3 cm with an SUV of 3.4. The patient has received 24 Gy of a prescribed 50 Shine with an intensity modulated radiotherapy plan utilizing a step and shoot treatment technique. Upon review of systems, she described mild odynophagia. On physical examination, the patient weighed 164 lbs. Her temperature was 97.7 ???F and the blood pressure was 165/88 mmHg. The pulse was 82 bpm and her respiratory rate was 18. There was no erythema within the treatment montemayor. Continue consolidation radiotherapy as prescribed. Signed by: Gerardo Blake 08/09/2022 3:13:45 PM
--- NOTE | 2022-08-16 15:17 | ONCRAD TMN_ITS ---
Radiation Oncology Treatment Management Note Patient Name: Negrita Varghese Date of : 1950 Date of Service: 08/16/2022 Attending Physician: Gerardo Blake M.D. Negrita Varghese is a 72year-old white female diagnosed with an [place] stage IIA non-Hodgkin lymphoma. She was initially evaluated in September for a midline neck mass. A neck CT scan completed on October 08, 2021 described a lobulated midline mass measuring 4.5 cm x 6.1 cm x 4.6 cm with probable invasion into the thyroid gland and displacement of the right internal jugular vein. A fine-needle aspiration obtained on October 21, 2021 was non-diagnostic. An incisional was performed by Dexter Madison M.D. on November 04, 2021. The pathology report diagnosed a high-grade B-cell lymphoma (triple hit negative). A PET scan ordered on November 20, 2021 demonstrated an irregular mass anterior to the trachea (SUV 21.5) and a superior mediastinal lymph node measuring 1.5 cm (SUV 10.8). She was prescribed 4 cycles of R-CHOP chemotherapy between the dates of January 25, 2022 through March 31, 2022. A restaging PET scan requested on April 16, 2022 identified a 1.7 cm anterior cervical mass with an SUV of 8.6 indicating a partial response to chemotherapy. An additional 2 cycles of R-CHOP were administered. The 6th cycle was delivered on May 11, 2022. Repeat PET imaging obtained on June 28, 2022 revealed persistent disease. The mass now measures 1.3 cm with an SUV of 3.4. The patient has received 34 Gy of a prescribed 50 Shine with an intensity modulated radiotherapy plan utilizing a step and shoot treatment technique. Upon review of systems, she denied any complaints. On physical examination, the patient weighed 164 lbs. Her temperature was 97.7 ???F and the blood pressure was 165/88 mmHg. The pulse was 82 bpm and her respiratory rate was 18. There was a grade I erythema of the skin within the treatment montemayor. Continue consolidation radiotherapy as planned. Signed by: Gerardo Blake 08/16/2022 3:16:05 PM
== END 2022-08-16 23:59 | disposition home or self-care (01) ==
PROVIDERS: PCP Family Medicine; Visit Provider Radiology Radiation Oncology
DX: C85.11 Unspecified B-cell lymphoma, lymph nodes of head, face, and neck; Z79.899 Other long term (current) drug therapy; Z79.52 Long term (current) use of systemic steroids; Z51.0 Encounter for antineoplastic radiation therapy; L25.1 Unspecified contact dermatitis due to drugs in contact with skin; T45.1X5A Adverse effect of antineoplastic and immunosuppressive drugs, initial encounter
CPT/HCPCS: 77300; 77301; 77334; 77336; 77338; 77386; 99024; 99214; Q9967

== ENCOUNTER 2022-08-26 10:30 | Oncology outpatient (recurring) (ONCR) | payer MEDICARE, BC, SELFPAY ==
--- NOTE | 2022-08-23 15:08 | ONCRAD TMN_ITS ---
Radiation Oncology Treatment Management Note Patient Name: Negrita Varghese Date of : 1950 Date of Service: 08/23/2022 Attending Physician: Gerardo Blake M.D. Negrita Varghese is a 72 year-old white female diagnosed with an [place] stage IIA non-Hodgkin lymphoma. She was initially evaluated in September for a midline neck mass. A neck CT scan completed on October 08, 2021 described a lobulated midline mass measuring 4.5 cm x 6.1 cm x 4.6 cm with probable invasion into the thyroid gland and displacement of the right internal jugular vein. A fine-needle aspiration obtained on October 21, 2021 was non-diagnostic. An incisional biopsy was performed by Dexter Madison M.D. on November 04, 2021. The pathology report diagnosed a high-grade B-cell lymphoma (triple hit negative). A PET scan ordered on November 20, 2021 demonstrated an irregular mass anterior to the trachea (SUV 21.5) and a superior mediastinal lymph node measuring 1.5 cm (SUV 10.8). She was prescribed 4 cycles of R-CHOP chemotherapy between the dates of January 25, 2022 through March 31, 2022. A restaging PET scan requested on April 16, 2022 identified a 1.7 cm anterior cervical mass with an SUV of 8.6 indicating a partial response to chemotherapy. An additional 2 cycles of R-CHOP were administered. The 6th cycle was delivered on May 11, 2022. Repeat PET imaging obtained on June 28, 2022 revealed persistent disease. The mass now measures 1.3 cm with an SUV of 3.4. The patient has received 44 Gy of a prescribed 50 Shine with an intensity modulated radiotherapy plan utilizing a step and shoot treatment technique. Upon review of systems, she denied any complaints. On physical examination, the patient weighed 160 lbs. Her temperature was 97.5 ???F and the blood pressure was 146/79 mmHg. The pulse was 74 bpm and her respiratory rate was 18. There was a grade I erythema of the skin within the treatment montemayor. Continue consolidation radiotherapy as prescribed. Signed by: Gerardo Blake 08/23/2022 3:06:58 PM
--- NOTE | 2022-08-26 09:11 | N.ONRD TS_ITS ---
Radiation OncologyTreatment Summary Patient Name: Negrita Varghese Date of : 1950 Date of Service: 08/26/2022 Attending Physician: Gerardo Blake M.D. Negrita Varghese has completed consolidative radiotherapy for the management an [place] stage IIA non-Hodgkin lymphoma. She was initially evaluated in September for a midline neck mass. A neck CT scan completed on October 08, 2021 described a lobulated midline mass measuring 4.5 cm x 6.1 cm x 4.6 cm with probable invasion into the thyroid gland and displacement of the right internal jugular vein. A fine-needle aspiration obtained on October 21, 2021 was non-diagnostic. An incisional biopsy was performed by Dexter Madison M.D. on November 04, 2021. The pathology report diagnosed a high-grade B-cell lymphoma (triple hit negative). A PET scan ordered on November 20, 2021 demonstrated an irregular mass anterior to the trachea (SUV 21.5) and a superior mediastinal lymph node measuring 1.5 cm (SUV 10.8). She was prescribed 4 cycles of R-CHOP chemotherapy between the dates of January 25, 2022 through March 31, 2022. A restaging PET scan requested on April 16, 2022 identified a 1.7 cm anterior cervical mass with an SUV of 8.6 indicating a partial response to chemotherapy. An additional 2 cycles of R-CHOP were administered. The 6th cycle was delivered on May 11, 2022. Repeat PET imaging obtained on June 28, 2022 revealed persistent disease. The mass now measures 1.3 cm with an SUV of 3.4. Radiation therapy was delivered between the dates of July 25, 2022 through August 26, 2022. A prescribed dose of 50 Gy was delivered in 25 fractions encompassing 33 elapsed days. The pre-chemotherapy and post-chemotherapy hypermetabolic lymph nodes were treated utilizing an intensity modulated radiotherapy plan with a step and shoot treatment technique. The plan required seven gantry angles (0???, 20???, 40???, 60???, 300???, 320???, and 340???) replicating a partial arc. The collimator angle was 0???. The field sizes spanned 10.5 cm x 8.6 cm to 11.2 cm x 8.6 cm. The SSDs measured a minimum of 93.6 cm to a maximum of 98.2 cm. The ports delivered 168 MU, 174 MU, 145 MU, 241 MU, 229 MU, 173 MU, and 187 MU corresponding to the gantry angles described. Low energy photons were prescribed. All treatments were performed with the [email or web address] linear accelerator and an isocentric technique. The dose was calculated by Anisotropic Analytic Algorithm with the plan normalized to deliver 100% of the prescription dose to 95% of the planning target volume. Signed by: Gerardo Blake 08/26/2022 9:09:52 AM
== END 2022-09-16 23:59 | disposition home or self-care (01) ==
PROVIDERS: PCP Family Medicine; Visit Provider Radiology Radiation Oncology
DX: Z51.0 Encounter for antineoplastic radiation therapy; C85.11 Unspecified B-cell lymphoma, lymph nodes of head, face, and neck; R21 Rash and other nonspecific skin eruption; Z79.52 Long term (current) use of systemic steroids; Z79.899 Other long term (current) drug therapy; Z92.21 Personal history of antineoplastic chemotherapy
CPT/HCPCS: 77014; 77336; 77386; 77427; 96523; 99024

== ENCOUNTER 2022-09-23 09:26 | Oncology outpatient (recurring) (ONCR) | payer MEDICARE, BC, SELFPAY ==
--- NOTE | 2022-09-23 10:00 | ONCRAD EPV_ITS ---
Radiation Oncology Follow-Up Note Patient Name: Negrita Varghese Date of : 1950 Date of Service: 09/23/2022 Attending Physician: Gerardo Blake M.D. Negrita Varghese returned this morning for a routinely scheduled post-radiotherapy follow-up appointment. She completed consolidative radiotherapy in August for the management of an [place] stage IIA non-Hodgkin lymphoma. She was initially evaluated in September for a midline neck mass. A neck CT scan completed on October 08, 2021 described a lobulated midline mass measuring 4.5 cm x 6.1 cm x 4.6 cm with probable invasion into the thyroid gland and displacement of the right internal jugular vein. A fine-needle aspiration obtained on October 21, 2021 was non-diagnostic. An incisional biopsy was performed by Dexter Madison M.D. on November 04, 2021. The pathology report diagnosed a high-grade B-cell lymphoma (triple hit negative). A PET scan ordered on November 20, 2021 demonstrated an irregular mass anterior to the trachea (SUV 21.5) and a superior mediastinal lymph node measuring 1.5 cm (SUV 10.8). She was prescribed 4 cycles of R-CHOP chemotherapy between the dates of January 25, 2022 through March 31, 2022. A restaging PET scan requested on April 16, 2022 identified a 1.7 cm anterior cervical mass with an SUV of 8.6 indicating a partial response to chemotherapy. An additional 2 cycles of R-CHOP were administered. The 6th cycle was delivered on May 11, 2022. Repeat PET imaging obtained on June 28, 2022 revealed persistent disease. The mass now measures 1.3 cm with an SUV of 3.4. Radiation therapy was delivered between the dates of July 25, 2022 through August 26, 2022. A prescribed dose of 50 Gy was delivered in 25 fractions encompassing 33 elapsed days. On review of systems, she denied any residual adverse effects from treatment. On physical examination, the patient weighed 161 lbs. The temperature was 97???F and her blood pressure was 138/79 mmHg. The pulse was 83 bpm and her respiratory rate was 18 breaths per minute. Slight hyperpigmentation was noted within the skin of the lower neck. In summary, the patient returned for a routine post-radiotherapy follow-up. There are no sequelae from treatment. I will request a PET scan for post-treatment assessment in October. She will continue follow-up with medical oncology as scheduled. Signed by: Gerardo Blake 09/23/2022 9:58:38 AM
== END 2022-10-16 23:59 | disposition home or self-care (01) ==
PROVIDERS: PCP Family Medicine; Visit Provider Radiology Radiation Oncology
DX: Z08 Encounter for follow-up examination after completed treatment for malignant neoplasm (principal); Z85.72 Personal history of non-Hodgkin lymphomas; Z92.21 Personal history of antineoplastic chemotherapy; Z92.3 Personal history of irradiation
CPT/HCPCS: 99024

== ENCOUNTER 2022-11-11 09:57 | Oncology outpatient (recurring) (ONCR) | payer MEDICARE, BC, SELFPAY ==
[2022-11-11 11:11] VITALS: BP 113/68; PULSE 89; RESP 18; TEMP 36.7; O2SAT 95
== END 2022-11-16 23:59 | disposition home or self-care (01) ==
PROVIDERS: PCP Family Medicine; Visit Provider Radiology Radiation Oncology
DX: Z45.2 Encounter for adjustment and management of vascular access device (principal)
CPT/HCPCS: 96523; J1642

== ENCOUNTER 2022-11-19 06:10 | Outpatient (CLI) | payer MEDICARE, BC, SELFPAY ==
--- NOTE | 2022-11-19 11:30 | PETR_ITS ---
PROCEDURE INFORMATION: Exam: PET/CT Skull Base to Mid-thigh Exam date and time: 11/19/2022 11:53 AM Age: 72 years old Clinical indication: Condition or disease; Primary cancer: Unspecified b cell lymphoma; Follow-up oncological assessment; Additional info: Post-treatment evaluation, pet scan needs to be performed before 11/09/22. LABS AND CLINICAL REPORTS: Glucose: 104 mg/dl Treatment strategy for malignancy (PET staging): Restaging (PS) TECHNIQUE: Imaging protocol: Following at least four-hour fasting and following the injection of radiopharmaceutical, low dose CT images were obtained. Then, PET images were obtained. Attenuation corrected images were constructed using the CT scan. Fused images of PET and CT were reviewed. The standardized uptake values (SUV) reported below are maximum values within a region of interest, expressed in gm/ml. Exam includes orbital meatal line to mid-thigh. Radiopharmaceutical: 13.6 mCi F-18 FDG (Fluorodeoxyglucose), IV. Time of imaging post radiopharmaceutical administration: 1 hour Injection site: Right antecubital COMPARISON: CT 4 radiotherapy planning [facility]21[facility]2022[id number] 06/28/2022 9:43 AM FINDINGS: Tubes, catheters and devices: A right internal jugular central venous port catheter terminates in the distal SVC. Brain: Visualized brain has normal physiologic uptake. Paranasal sinuses: Non radiotracer avid mild mucosal thickening of small amount of fluid in the left maxillary sinus is noted consistent with sinusitis. Pharynx: No abnormal uptake. Larynx: No abnormal uptake. Thyroid: Mild uptake in the thyroid gland appears greatest on the left, SUV max 3.5 (previously 2.4) where it corresponds to a low-density nodule measuring 6 mm on series 3, image 30. Lungs, pleura and trachea: No abnormal uptake. Heart: Normal physiologic uptake. Mediastinal space: No abnormal uptake. Liver: Similar non radiotracer avid fluid density ovoid structure in the dome of the liver measuring 2.9 x 2.1 cm. Gallbladder and bile ducts: No abnormal uptake. Pancreas: No abnormal uptake. Spleen: No abnormal uptake. Adrenal glands: No abnormal uptake. Kidneys and ureters: A 2-3 mm stone in the inferior pole of the left kidney is present. No hydronephrosis. Stomach and bowel: No abnormal uptake. Vasculature: No abnormal uptake. Mild appearing atherosclerotic calcifications are noted in the abdomen and pelvis.Coronary artery atherosclerotic calcifications are noted. Lymph nodes: No abnormal uptake. No lymphadenopathy in the head, neck, chest, abdomen, pelvis, and extremities. Bones/joints: No abnormal uptake in the visualized axial and appendicular skeleton. [id number] degenerative changes in the spine are noted. Soft tissues: Minimal fat stranding is noted in the fat planes along the anterior inferior aspect of the right sternocleidomastoid muscle for example on CT series 3 between images 31 and 34 without elevated uptake (previous SUV max 3.3). No residual mass appears to be present. METRICS: Mediastinal blood pool: SUV max 2.2 Liver uptake: SUV max 2.9, SUV mean 2.2 [id number] IMPRESSION: 1. In the region of a previously described soft tissue density mass along the inferior aspect of the right sternocleidomastoid muscle at the base of the neck no discrete mass is currently identified with interval resolution of elevated uptake noted on the prior PET-CT consistent with an interval response to therapy. 2. Mild uptake in the thyroid gland is noted, greatest where there is evidence of a small low-density nodule in the left. This appearance may be related to thyroiditis although neoplastic involvement cannot be entirely excluded. Consider dedicated thyroid ultrasound for further assessment. 3. Similar simple appearing liver cyst. 4. Left nephrolithiasis. 5. Additional nonurgent findings as detailed above. Deauville Scorin: No uptake 2: Uptake < or = mediastinal blood pool (max SUV) 3: Uptake > mediastinal blood pool (max SUV) but < or = liver (max SUV) 4: Uptake moderately higher than liver (uptake > maximum SUV of the liver) 5: Uptake markedly higher than liver (uptake 2-3x > maximum SUV of the liver) and/or new lesions
== END 2022-11-19 06:11 | disposition home or self-care (01) ==
LOC: RAD 11-21 06:10
PROVIDERS: PCP Family Medicine; Visit Provider Radiology Radiation Oncology
DX: C85.11 Unspecified B-cell lymphoma, lymph nodes of head, face, and neck (principal); R93.89 Abnormal findings on diagnostic imaging of other specified body structures; E04.1 Nontoxic single thyroid nodule; K76.89 Other specified diseases of liver; N20.0 Calculus of kidney
CPT/HCPCS: 78815; A9552

== ENCOUNTER 2022-11-28 11:21 | Oncology outpatient (recurring) (ONCR) | payer MEDICARE, BC, SELFPAY | END 2022-12-16 23:59 | disposition home or self-care (01) | PROVIDERS: PCP Family Medicine; Visit Provider Radiology Radiation Oncology | DX: C85.11 Unspecified B-cell lymphoma, lymph nodes of head, face, and neck; Z79.52 Long term (current) use of systemic steroids; Z79.899 Other long term (current) drug therapy; Z78.0 Asymptomatic menopausal state | CPT/HCPCS: 99214 ==

== ENCOUNTER 2023-01-02 11:57 | Oncology outpatient (recurring) (ONCR) | payer MEDICARE, BC, SELFPAY ==
[2023-01-02 12:01] VITALS: BP 156/76; PULSE 70; RESP 18; TEMP 36.4; O2SAT 95
[2023-01-02 12:12] LABS: Basophils % 0.6 %; Eosinophils # 0.4 10^3/uL (0.0-0.8); Eosinophils % 7.8 %; Hematocrit 38.6 % (37.0-47.0); Lymphocytes # 1.1 10^3/uL (0.8-4.8); Lymphocytes % 20.5 %; Mean Corpuscular HGB Conc 33.7 g/dL (30.0-36.0); Mean Corpuscular Hemoglobin 32.3 pg (28.0-34.0); Mean Corpuscular Volume 95.8 fl (81-99); Mean Platelet Volume 9.9 fL (7.4-10.4); Monocytes # 0.5 10^3/uL (0.2-0.9); Monocytes % 9.1 %; Neutrophils # 3.32 10^3/uL (1.8-7.7); Neutrophils % 61.8 %; Nucleated Red Blood Cells % 0 %; Platelet Count 149 10^3/cmm (130-400); Red Blood Count 4.03 10^6/uL (4.1-5.3); Red Cell Distribution Width 13.2 % (12.1-15.1); White Blood Count 5.4 10^3/uL (4.0-10.0)
--- NOTE | 2023-01-02 12:23 | XR_ITS ---
WS: [id number] SCREENING DEXA SCAN [id number] CLINICAL INFORMATION: ASYMPTOMATIC MENOPAUSAL STATE COMPARISON: None. FINDINGS: The L1-L4 bone mineral density measures 0.965 g/cm2. This corresponds to a T score score of -1.8 and Z score of -0.3. Left femoral neck bone mineral density measures 0.819 g/cm2. This corresponds to a T score of -1.5 an d Z score of -0.1. Right femoral neck bone mineral density measures 0.828 g/cm2. This corresponds to a T score -1.4of an d Z score of 0.0. Mean femoral neck bone mineral density measures 0.823 g/cm2. This corresponds to a T score of -1.5 an d Z score of 0.0. XR/XR DEXA axial skeleton* [id number] IMPRESSION: Osteopenia lumbar spine. Osteopenia femoral necks. Patient's FRAX calculated 10 year probability for major osteoporotic fracture i s 14.1 % and osteoporotic hip fracture is 3.7%.
[2023-01-02 12:31] LABS: Alanine Aminotransferase 14 U/L (0-33); Albumin Level 4.1 g/dL (3.5-5.2); Alkaline Phosphatase 106 U/L (35-105); Anion Gap 15.1 (5-19); Aspartate Amino Transferase 17 U/L (0-32); Blood Urea Nitrogen 13 mg/dL (8-23); Calcium 9.1 mg/dL (8.5-10.5); Carbon Dioxide 23 mmol/L (22-29); Chloride 104 mmol/L (98-107); Globulin 2.7 g/dL (1.3-4.6); Glucose 94 mg/dL (65-115); Lactate Dehydrogenase 154 U/L (135-214); Osmolality Calculated 286 mOsm/kg (285-295); Potassium 4.1 mmol/L (3.5-5.1); Sodium 138 mmol/L (136-145); Total Bilirubin 0.3 mg/dL (0.15-1.2); Total Protein 6.8 g/dL (6.6-8.7)
== END 2023-01-16 23:59 | disposition home or self-care (01) ==
PROVIDERS: PCP Family Medicine; Referring Provider Internal Medicine Medical Oncology; Visit Provider Radiology Radiation Oncology
DX: C85.10 Unspecified B-cell lymphoma, unspecified site (principal); Z78.0 Asymptomatic menopausal state
CPT/HCPCS: 36591; 77080; 80053; 83615; 85025; J1642

== ENCOUNTER 2023-02-03 09:29 | Oncology outpatient (recurring) (ONCR) | payer MEDICARE, BC, SELFPAY ==
[2023-02-03 10:05] VITALS: BMI 31.8
[2023-02-03 10:05] LABS: Basophils % 0.4 %; Eosinophils # 0.3 10^3/uL (0.0-0.8); Eosinophils % 5.6 %; Hematocrit 39.8 % (37.0-47.0); Hemoglobin 13.5 g/dL (11.5-15.3); Lymphocytes # 1.1 10^3/uL (0.8-4.8); Lymphocytes % 23.1 %; Mean Corpuscular HGB Conc 33.9 g/dL (30.0-36.0); Mean Corpuscular Hemoglobin 32.2 pg (28.0-34.0); Mean Platelet Volume 9.8 fL (7.4-10.4); Monocytes # 0.5 10^3/uL (0.2-0.9); Monocytes % 10.9 %; Neutrophils # 2.79 10^3/uL (1.8-7.7); Neutrophils % 59.8 %; Nucleated Red Blood Cells % 0 %; Platelet Count 146 10^3/cmm (130-400); Red Blood Count 4.19 10^6/uL (4.1-5.3); Red Cell Distribution Width 13.3 % (12.1-15.1); White Blood Count 4.7 10^3/uL (4.0-10.0)
[2023-02-03 10:23] LABS: Alanine Aminotransferase 9 U/L (0-33); Albumin Level 4.5 g/dL (3.5-5.2); Alkaline Phosphatase 96 U/L (35-105); Anion Gap 15.2 (5-19); Aspartate Amino Transferase 15 U/L (0-32); Blood Urea Nitrogen 14 mg/dL (8-23); Calcium 9.2 mg/dL (8.5-10.5); Carbon Dioxide 26 mmol/L (22-29); Chloride 102 mmol/L (98-107); Globulin 2.6 g/dL (1.3-4.6); Glucose 91 mg/dL (65-115); Lactate Dehydrogenase 143 U/L (135-214); Osmolality Calculated 288 mOsm/kg (285-295); Potassium 4.2 mmol/L (3.5-5.1); Sodium 139 mmol/L (136-145); Total Bilirubin 0.5 mg/dL (0.15-1.2); Total Protein 7.1 g/dL (6.6-8.7)
== END 2023-02-16 23:59 | disposition home or self-care (01) ==
PROVIDERS: PCP Family Medicine; Referring Provider Internal Medicine Medical Oncology; Visit Provider Radiology Radiation Oncology
DX: Z08 Encounter for follow-up examination after completed treatment for malignant neoplasm; C85.11 Unspecified B-cell lymphoma, lymph nodes of head, face, and neck; Z92.21 Personal history of antineoplastic chemotherapy; Z92.3 Personal history of irradiation; Z79.52 Long term (current) use of systemic steroids; Z79.899 Other long term (current) drug therapy; Z95.828 Presence of other vascular implants and grafts
CPT/HCPCS: 80053; 83615; 85025; 99214; J1642

== ENCOUNTER 2023-03-02 14:34 | Oncology outpatient (recurring) (ONCR) | payer MEDICARE, BC, SELFPAY ==
[2023-03-02 15:00] VITALS: BP 150/74; PULSE 70; RESP 16; TEMP 36.7; O2SAT 96
== END 2023-03-18 23:59 | disposition home or self-care (01) ==
PROVIDERS: PCP Family Medicine; Referring Provider Internal Medicine Medical Oncology; Visit Provider Radiology Radiation Oncology
DX: Z08 Encounter for follow-up examination after completed treatment for malignant neoplasm (principal); Z85.72 Personal history of non-Hodgkin lymphomas; Z92.21 Personal history of antineoplastic chemotherapy; Z92.3 Personal history of irradiation; Z51.0 Encounter for antineoplastic radiation therapy; C85.11 Unspecified B-cell lymphoma, lymph nodes of head, face, and neck; R21 Rash and other nonspecific skin eruption; Z79.52 Long term (current) use of systemic steroids; Z79.899 Other long term (current) drug therapy; Z95.828 Presence of other vascular implants and grafts
CPT/HCPCS: 96523; J1642

== ENCOUNTER 2023-03-30 14:03 | Oncology outpatient (recurring) (ONCR) | payer MEDICARE, BC, SELFPAY ==
[2023-03-30 14:55] VITALS: BP 148/80; PULSE 69; TEMP 37.1; O2SAT 97
== END 2023-04-18 23:59 | disposition home or self-care (01) ==
LOC: ONCMED 14:03
PROVIDERS: PCP Family Medicine; Referring Provider Internal Medicine Medical Oncology; Visit Provider Radiology Radiation Oncology
DX: Z08 Encounter for follow-up examination after completed treatment for malignant neoplasm (principal); Z85.72 Personal history of non-Hodgkin lymphomas; Z92.21 Personal history of antineoplastic chemotherapy; Z92.3 Personal history of irradiation; Z51.0 Encounter for antineoplastic radiation therapy; C85.11 Unspecified B-cell lymphoma, lymph nodes of head, face, and neck; R21 Rash and other nonspecific skin eruption; Z79.52 Long term (current) use of systemic steroids; Z79.899 Other long term (current) drug therapy; Z95.828 Presence of other vascular implants and grafts; Z45.2 Encounter for adjustment and management of vascular access device
CPT/HCPCS: 96523; J1642

== ENCOUNTER 2023-05-08 08:55 | Oncology outpatient (recurring) (ONCR) | payer MEDICARE, BC, SELFPAY ==
[2023-05-08 09:25] VITALS: BP 151/84; PULSE 77; RESP 16; TEMP 36.2; O2SAT 97
[2023-05-08 09:37] LABS: Basophils % 0.4 %; Eosinophils # 0.2 10^3/uL (0.0-0.8); Eosinophils % 4.3 %; Hematocrit 41.1 % (36-47); Lymphocytes # 1.2 10^3/uL (0.8-4.8); Lymphocytes % 24.5 %; Mean Corpuscular HGB Conc 33.1 g/dL (30-55); Mean Corpuscular Hemoglobin 31.8 pg (27-33); Mean Platelet Volume 9.7 fL (7.4-10.4); Monocytes # 0.5 10^3/uL (0.2-0.9); Monocytes % 10.3 %; Neutrophils # 2.97 10^3/uL (1.8-7.7); Neutrophils % 60.1 %; Nucleated Red Blood Cells % 0 %; Platelet Count 163 10^3/cmm (157-399); Red Blood Count 4.28 10^6/uL (3.85-5.65); Red Cell Distribution Width 13.2 % (12.1-15.1); White Blood Count 4.94 10^3/uL (3.29-11.43)
[2023-05-08 09:58] LABS: Alanine Aminotransferase 14 U/L (0-33); Albumin Level 4.4 g/dL (3.5-5.2); Alkaline Phosphatase 102 U/L (35-105); Anion Gap 15.5 (5-19); Aspartate Amino Transferase 17 U/L (0-32); Blood Urea Nitrogen 15 mg/dL (8-23); Calcium 9.6 mg/dL (8.5-10.5); Carbon Dioxide 25 mmol/L (22-29); Chloride 102 mmol/L (98-107); Globulin 2.9 g/dL (1.3-4.6); Glucose 82 mg/dL (65-115); Lactate Dehydrogenase 152 U/L (135-214); Osmolality Calculated 286 mOsm/kg (285-295); Potassium 4.5 mmol/L (3.5-5.1); Sodium 138 mmol/L (136-145); Total Bilirubin 0.3 mg/dL (0.15-1.2); Total Protein 7.3 g/dL (6.6-8.7)
== END 2023-05-18 23:59 | disposition home or self-care (01) ==
PROVIDERS: PCP Family Medicine; Referring Provider Internal Medicine Medical Oncology; Visit Provider Specialist
DX: Z51.0 Encounter for antineoplastic radiation therapy (principal); Z92.21 Personal history of antineoplastic chemotherapy; Z92.3 Personal history of irradiation; C85.11 Unspecified B-cell lymphoma, lymph nodes of head, face, and neck; R21 Rash and other nonspecific skin eruption; Z79.52 Long term (current) use of systemic steroids; Z79.899 Other long term (current) drug therapy; Z95.828 Presence of other vascular implants and grafts
CPT/HCPCS: 36591; 80053; 83615; 85025; 99213; J1642

== ENCOUNTER 2023-05-18 13:08 | Outpatient (CLI) | payer MEDICARE, BC, SELFPAY ==
--- NOTE | 2023-05-18 13:15 | CT_ITS ---
WS: [id number] CT NECK TECHNIQUE: Contrast-enhanced CT of the neck with coronal and sagittal reformatted images. CLINICAL INFORMATION: compare to previous COMPARISON: 09/2021 and PET/CT 11/19/2022 DLP: 156.[address] scans at [facility] use at least one of these dose optimization techniques: automated e xposure control; mA and/or kV adjustment per patient size (includes targeted exams where dose is matc hed to clinical indication); or iterative reconstruction. FINDINGS: Previously described soft tissue mass at the thoracic inlet and lower neck is significantly improved and nearly resolved compatible with interval response to therapy. Small amount of residual low-attenuation soft tissue thickening in this area. Residual soft tissue measures 1.9 x 2.7 cm. This area appears stable compared to the most recent PET/CT 11/19/2022 Few prominent submandibular and jugulodigastric lymph nodes are unchanged. Largest measures approxima tely 9 mm. Mucosal thickening in paranasal sinuses. Fluid in the LEFT maxillary sinus and sphenoid sinus compati ble with sinusitis. Mild mucosal thickening in the mastoid tips. Hyperdense enhancing LEFT thyroid nodule measuring 9 mm. Lung apices are well aerated. Straightening of the normal cervical lordosis. Normal posterior nasopharynx. Normal parapharyngeal fat. Parotid gla nds are normal. Normal submandibular glands. No evidence of supraglottic or glottic mass. IMPRESSION: 1. Previously described low-attenuation mass at the thoracic inlet has significantly improved and ne mario resolved compatible with interval response to therapy. 2. Small amount of residual low-attenuation soft tissue in this area measuring 2.7 x 1.9 cm 3. Mild paranasal sinusitis. 4. Hyperdense 9 mm LEFT thyroid nodule is stable. 5. No other suspicious findings.
[2023-05-18] MEDS: iohexol 350 mg/mL 500 mL Btl (per mL) IV (13:47)
== END 2023-05-18 13:09 | disposition home or self-care (01) ==
LOC: RAD 13:08
PROVIDERS: PCP Family Medicine; Visit Provider Internal Medicine Medical Oncology
DX: C85.10 Unspecified B-cell lymphoma, unspecified site (principal)
CPT/HCPCS: 70491; Q9967

== ENCOUNTER 2023-05-25 09:40 | Outpatient (CLI) | payer MEDICARE, BC, SELFPAY ==
--- NOTE | 2023-05-25 09:30 | CT_ITS ---
WS: [id number] CT CHEST, ABDOMEN AND PELVIS WITH CONTRAST HISTORY: Follow-up lymphoma. TECHNIQUE: Contiguous 5 mm axial imaging performed through the chest, abdomen and pelvis with IV cont rast, oral contrast has been provided. Coronal and sagittal reformats chest. Coronal and sagittal ref ormats through the abdomen and pelvis. All CT scans at [facility] use at least one of these d ose optimization techniques: automated exposure control; mA and/or kV adjustment per patient size (in cludes targeted exams where dose is matched to clinical indication); or iterative reconstruction. CONTRAST: Omnipaque 350; 100 mL IV. DLP: 930.47 mGy.cm COMPARISON: PET/CT 11/19/2022, neck CT 05/18/2023 and 10/08/[address]: Lungs are clear. No pulmonary mass or nodule. Reidentified is a residual soft tissue mass a long the inferior RIGHT neck which abuts the thyroid measuring 1.5 x 1.7 cm. No mediastinal or hilar adenopathy. RIGHT IJ Mediport. Normal size heart. No pericardial or pleural effusions. Abdomen CT: Cystic mass superior RIGHT lobe of the liver 2.8 x 2.1 cm. No solid mass or metastatic di sease. No bile duct dilatation. Negative spleen and gallbladder. No adrenal mass. Mild fatty replacem ent of the pancreas. Mild atherosclerosis aorta. Nonobstructing calcification lower pole LEFT kidney. No hydronephrosis. Normal stomach, small bowel and appendix. No GI tract obstruction. Mild burden distal sigmoid colon w ith diverticular disease. No mesenteric, tate hepatis or retroperitoneal adenopathy. Pelvic CT: No free fluid. No adenopathy. Schmorl's node superior endplate of L4. IMPRESSION: 1. No adenopathy within the chest, abdomen or pelvis. 2. Posttreatment residual soft tissue in the RIGHT inferior neck abutting the thyroid measures 1.5 x 1.7 cm. Similar to the prior appearance noted on the neck CT of 05/18/2023. 3. Hepatic cysts. 4. Distal sigmoid diverticular disease. No acute diverticulitis.
[2023-05-25] MEDS: iohexol 350 mg/mL 500 mL Btl (per mL) PO (09:45)
[2023-05-25] MEDS: iohexol 350 mg/mL 500 mL Btl (per mL) IV (09:58)
== END 2023-05-25 09:41 | disposition home or self-care (01) ==
LOC: RAD 09:40
PROVIDERS: PCP Family Medicine; Visit Provider Internal Medicine Medical Oncology
DX: C85.11 Unspecified B-cell lymphoma, lymph nodes of head, face, and neck (principal)
CPT/HCPCS: 71260; 74177; 96523; Q9967

== ENCOUNTER 2023-07-18 15:23 | Oncology outpatient (recurring) (ONCR) | payer MEDICARE, SELFPAY | END 2023-07-19 23:59 | disposition home or self-care (01) | LOC: ONCMED 15:24 | PROVIDERS: PCP Family Medicine; Referring Provider Internal Medicine Medical Oncology; Visit Provider Specialist | DX: Z45.2 Encounter for adjustment and management of vascular access device (principal) | CPT/HCPCS: 96523 ==

== ENCOUNTER 2023-08-08 14:10 | Oncology outpatient (recurring) (ONCR) | payer MEDICARE, SELFPAY | END 2023-08-17 23:59 | disposition home or self-care (01) | LOC: ONCMED 14:11 | PROVIDERS: PCP Family Medicine; Referring Provider Internal Medicine Medical Oncology; Visit Provider Specialist | DX: Z45.2 Encounter for adjustment and management of vascular access device | CPT/HCPCS: 96523; J1642 ==

== ENCOUNTER 2023-09-05 14:00 | Oncology outpatient (recurring) (ONCR) | payer MEDICARE, SELFPAY | END 2023-09-17 23:59 | disposition home or self-care (01) | LOC: ONCMED 14:01 | PROVIDERS: PCP Family Medicine; Referring Provider Internal Medicine Medical Oncology; Visit Provider Specialist | DX: Z45.2 Encounter for adjustment and management of vascular access device (principal) | CPT/HCPCS: 96523; J1642 ==

== ENCOUNTER 2023-10-05 13:50 | Oncology outpatient (recurring) (ONCR) | payer MEDICARE, SELFPAY | END 2023-10-17 23:59 | disposition home or self-care (01) | PROVIDERS: PCP Family Medicine; Referring Provider Internal Medicine Medical Oncology; Visit Provider Specialist | DX: Z45.2 Encounter for adjustment and management of vascular access device (principal) | CPT/HCPCS: 96523 ==

== ENCOUNTER 2023-11-29 09:33 | Oncology outpatient (recurring) (ONCR) | payer MEDICARE, SELFPAY ==
[2023-11-29 10:01] LABS: Basophils # 0.1 10^3/uL (0.0-0.1); Eosinophils # 0.1 10^3/uL (0.0-0.8); Eosinophils % 2.2 %; Hematocrit 40.1 % (36-47); Lymphocytes # 1.6 10^3/uL (0.8-4.8); Lymphocytes % 30.3 %; Mean Corpuscular HGB Conc 33.2 g/dL (30-55); Mean Corpuscular Hemoglobin 32.1 pg (27-33); Mean Corpuscular Volume 96.9 fl (85-98); Mean Platelet Volume 9.9 fL (7.4-10.4); Monocytes # 0.5 10^3/uL (0.2-0.9); Monocytes % 9.8 %; Neutrophils # 2.89 10^3/uL (1.8-7.7); Neutrophils % 56.5 %; Nucleated Red Blood Cells % 0 %; Platelet Count 162 10^3/cmm (157-399); Red Blood Count 4.14 10^6/uL (3.85-5.65); Red Cell Distribution Width 13.4 % (12.1-15.1); White Blood Count 5.11 10^3/uL (3.29-11.43)
[2023-11-29 10:17] LABS: Alanine Aminotransferase 12 U/L (0-33); Albumin Level 4.2 g/dL (3.5-5.2); Alkaline Phosphatase 96 U/L (35-105); Anion Gap 15.1 (5-19); Aspartate Amino Transferase 16 U/L (0-32); Blood Urea Nitrogen 14 mg/dL (8-23); Calcium 9.1 mg/dL (8.5-10.5); Carbon Dioxide 25 mmol/L (22-29); Chloride 104 mmol/L (98-107); Glucose 92 mg/dL (65-115); Lactate Dehydrogenase 155 U/L (135-214); Osmolality Calculated 290 mOsm/kg (285-295); Potassium 4.1 mmol/L (3.5-5.1); Sodium 140 mmol/L (136-145); Total Bilirubin 0.3 mg/dL (0.15-1.2); Total Protein 7.2 g/dL (6.6-8.7)
[2023-11-29 14:50] LABS: Thyroid Stimulating Hormone 39.79 uIU/mL (0.27-4.20)
== END 2023-12-17 23:59 | disposition home or self-care (01) ==
PROVIDERS: PCP Family Medicine; Referring Provider Internal Medicine Medical Oncology; Visit Provider Nurse Practitioner Family
DX: C85.10 Unspecified B-cell lymphoma, unspecified site (principal); I10 Essential (primary) hypertension
CPT/HCPCS: 36591; 80053; 83615; 84439; 84443; 85025; 99214

== ENCOUNTER 2023-12-27 15:08 | Oncology outpatient (recurring) (ONCR) | payer MEDICARE, SELFPAY | END 2024-01-17 23:59 | disposition home or self-care (01) | LOC: ONCMED 15:08 | PROVIDERS: PCP Family Medicine; Referring Provider Internal Medicine Medical Oncology; Visit Provider Nurse Practitioner Family | DX: Z45.2 Encounter for adjustment and management of vascular access device | CPT/HCPCS: 96523 ==

== ENCOUNTER 2024-01-24 15:15 | Oncology outpatient (recurring) (ONCR) | payer MEDICARE, SELFPAY | END 2024-02-17 23:59 | disposition home or self-care (01) | PROVIDERS: PCP Family Medicine; Referring Provider Internal Medicine Medical Oncology; Visit Provider Nurse Practitioner Family | DX: Z53.9 Procedure and treatment not carried out, unspecified reason (principal) | CPT/HCPCS: 96523 ==

== ENCOUNTER 2024-02-21 14:42 | Oncology outpatient (recurring) (ONCR) | payer MEDICARE, SELFPAY | END 2024-03-18 23:59 | disposition home or self-care (01) | PROVIDERS: PCP Family Medicine; Referring Provider Internal Medicine Medical Oncology; Visit Provider Nurse Practitioner Family | DX: Z45.2 Encounter for adjustment and management of vascular access device | CPT/HCPCS: 96523 ==

== ENCOUNTER 2024-04-17 14:45 | Oncology outpatient (recurring) (ONCR) | payer MEDICARE, SELFPAY | END 2024-04-18 23:59 | disposition home or self-care (01) | PROVIDERS: PCP Family Medicine; Visit Provider Internal Medicine Hematology & Oncology | DX: Z53.9 Procedure and treatment not carried out, unspecified reason (principal); Z45.2 Encounter for adjustment and management of vascular access device | CPT/HCPCS: 96523 ==

== ENCOUNTER 2024-05-15 08:34 | Oncology outpatient (recurring) (ONCR) | payer MEDICARE, SELFPAY ==
--- NOTE | 2024-05-15 08:45 | CTR_ITS ---
PROCEDURE INFORMATION: Exam: CT Neck With Contrast Exam date and time: 05/15/2024 9:46 AM Age: 74 years old Clinical indication: Condition or disease; Other: Lymphoma; Additional info: Surveillance TECHNIQUE: Imaging protocol: Computed tomography of the neck with contrast. Radiation optimization: All CT scans at this facility use at least one of these dose optimization techniques: automated exposure control; mA and/or kV adjustment per patient size (includes targeted exams where dose is matched to clinical indication); or iterative reconstruction. Contrast material: OMNI 350; Contrast volume: 75 ml; Contrast route: INTRAVENOUS (IV); COMPARISON: CT neck w con* [id number] 05/18/2023 1:39 PM RADIATION DOSE METRICS: Total DLP (mGy-cm): 169.22 FINDINGS: Salivary glands: Normal. Glands are normal in size. Oral cavity: Unremarkable. Pharynx: Asymmetric appearance of the piriform sinuses with relative effacement of the left side. Underlying mucosal lesion cannot be excluded. Recommend correlation with direct visualization. Prevertebral and retropharyngeal spaces: Unremarkable. Larynx: Unremarkable. Epiglottis is normal. Thyroid: Heterogeneous thyroid gland with underlying nodules. The thyroid gland would be better assessed with thyroid ultrasound if clinically warranted. Trachea: Visualized upper trachea is unremarkable. Lungs: Lung apices are unremarkable. Lymph nodes: Stable appearance to cervical lymph nodes measuring up to 2.5 x 0.8 cm in the left jugulodigastric region. Bones/joints: No acute bony abnormality. Soft tissues: Stable appearance to soft tissue density at the inferior aspect of the right sternocleidomastoid muscle anterior to the right thyroid gland measuring up to 2.4 x 1.6 cm. Soft tissue density is best seen on series 3, image 75. CT/CT neck w con* [id number] IMPRESSION: 1. Stable appearance to soft tissue density at the inferior aspect of the right sternocleidomastoid muscle. Recommend clinical correlation and follow-up imaging as clinically warranted. 2. Stable cervical lymph nodes. 3. Asymmetric appearance of the piriform sinuses with relative effacement of the left side. Underlying mucosal lesion cannot be excluded. Recommend correlation with direct visualization. 4. Heterogeneous thyroid gland with underlying nodules. The thyroid gland would be better assessed with thyroid ultrasound if clinically warranted. COMMENTS: Consistent with the [employer] [employer]'s Incidental Findings Committee white paper (J Am Sebastián Radiol 2015): In patients aged 35 years and older with an incidental thyroid nodule equal to or greater than 1.[address], MRI or extrathyroidal US, further evaluation with dedicated thyroid US is recommended for patients with normal life expectancy and without comorbidities. For smaller nodules without suspicious features, no further evaluation or follow up is recommended.
--- NOTE | 2024-05-15 09:15 | CTR_ITS ---
PROCEDURE INFORMATION: Exam: CT Chest With Contrast; Diagnostic Exam date and time: 05/15/2024 9:40 AM Age: 74 years old Clinical indication: Condition or disease; Other: Lymphoma; Follow-up oncological assessment; Prior surgery; Surgery date: 6+ months; Surgery type: Port; Additional info: Surveillance TECHNIQUE: Imaging protocol: Diagnostic computed tomography of the chest with contrast. Radiation optimization: All CT scans at this facility use at least one of these dose optimization techniques: automated exposure control; mA and/or kV adjustment per patient size (includes targeted exams where dose is matched to clinical indication); or iterative reconstruction. Contrast material: OMNI 350; Contrast volume: 75 ml; Contrast route: INTRAVENOUS (IV); COMPARISON: CT chest abdpel w/*[id number] 05/25/2023 9:49 AM RADIATION DOSE METRICS: Total DLP (mGy-cm): 922.48 FINDINGS: Lungs: Unremarkable. No consolidation. No masses. Pleural spaces: Unremarkable. No pneumothorax. No pleural effusion. Heart: Unremarkable. No cardiomegaly. No pericardial effusion. Lymph nodes: Unremarkable. No enlarged lymph nodes. Vasculature: Unremarkable. No aortic aneurysm. Bones/joints: Unremarkable. No acute fracture. Soft tissues: Unremarkable. PROCEDURE INFORMATION: Exam: CT Abdomen And Pelvis With Contrast Exam date and time: 05/15/2024 9:40 AM Age: 74 years old Clinical indication: Condition or disease; Other: Lymphoma; Follow-up oncological assessment; Prior surgery; Surgery date: 6+ months; Surgery type: Port; Additional info: Surveillance TECHNIQUE: Imaging protocol: Computed tomography of the abdomen and pelvis with contrast. Radiation optimization: All CT scans at this facility use at least one of these dose optimization techniques: automated exposure control; mA and/or kV adjustment per patient size (includes targeted exams where dose is matched to clinical indication); or iterative reconstruction. Contrast material: OMNI 350; Contrast volume: 75 ml; Contrast route: INTRAVENOUS (IV); COMPARISON: CT chest abdpel w/*[id number] 05/25/2023 9:49 AM RADIATION DOSE METRICS: Total DLP (mGy-cm): 922.48 FINDINGS: Liver: 3 cm right hepatic cyst is stable. Gallbladder and biliary ducts: Normal. No calcified stones. No ductal dilation. Pancreas: Normal. No ductal dilation. Spleen: Normal. No splenomegaly. Adrenal glands: Normal. No mass. Kidneys and ureters: Nonobstructing left renal calculus. Stomach and bowel: Mild diverticulosis without evidence of diverticulitis. Appendix: No evidence of appendicitis. Intraperitoneal space: Unremarkable. No free air. No significant fluid collection. Vasculature: Unremarkable. No abdominal aortic aneurysm. Lymph nodes: Unremarkable. No enlarged lymph nodes. Urinary bladder: Unremarkable as visualized. Reproductive: Unremarkable as visualized. Bones/joints: Unremarkable. No acute fracture. Soft tissues: Unremarkable. CT/CT chest abdpel w/*[id number] IMPRESSION: No evidence of intrathoracic neoplastic disease. IMPRESSION: 1. No acute findings. 2. No evidence of neoplastic disease.
[2024-05-15 09:42] LABS: Blood Urea Nitrogen 14 mg/dL (8-23)
[2024-05-15] MEDS: iohexol 350 mg/mL 500 mL Btl (per mL) IV ×2 (09:55→09:56)
[2024-05-15] MEDS: iohexol 350 mg/mL 500 mL Btl (per mL) PO (09:55)
== END 2024-05-18 23:59 | disposition home or self-care (01) ==
LOC: RAD 08:39 → ONCMED 09:05
PROVIDERS: PCP Family Medicine; Visit Provider Nurse Practitioner Family
DX: Z45.2 Encounter for adjustment and management of vascular access device (principal); C85.11 Unspecified B-cell lymphoma, lymph nodes of head, face, and neck; C85.10 Unspecified B-cell lymphoma, unspecified site
CPT/HCPCS: 70491; 71260; 74177; 82565; 84520

== ENCOUNTER 2024-05-28 12:45 | Oncology outpatient (recurring) (ONCR) | payer MEDICARE, SELFPAY ==
[2024-05-28 13:31] LABS: Basophils % 0.5 %; Eosinophils # 0.1 10^3/uL (0.0-0.8); Eosinophils % 1.4 %; Hematocrit 40.4 % (36-47); Lymphocytes # 1.7 10^3/uL (0.8-4.8); Lymphocytes % 26.8 %; Mean Corpuscular HGB Conc 33.7 g/dL (30-55); Mean Corpuscular Hemoglobin 32.1 pg (27-33); Mean Corpuscular Volume 95.3 fl (85-98); Mean Platelet Volume 9.7 fL (7.4-10.4); Monocytes # 0.6 10^3/uL (0.2-0.9); Monocytes % 9.5 %; Neutrophils # 3.93 10^3/uL (1.8-7.7); Neutrophils % 61.5 %; Nucleated Red Blood Cells % 0 %; Platelet Count 156 10^3/cmm (157-399); Red Blood Count 4.24 10^6/uL (3.85-5.65); Red Cell Distribution Width 13.1 % (12.1-15.1); White Blood Count 6.39 10^3/uL (3.29-11.43)
[2024-05-28 13:55] LABS: Alanine Aminotransferase 12 U/L (0-33); Albumin Level 4.1 g/dL (3.5-5.2); Alkaline Phosphatase 107 U/L (35-105); Anion Gap 16.1 (5-19); Aspartate Amino Transferase 16 U/L (0-32); Blood Urea Nitrogen 20 mg/dL (8-23); Calcium 9.7 mg/dL (8.5-10.5); Carbon Dioxide 24 mmol/L (22-29); Chloride 102 mmol/L (98-107); Creatinine Clr Calc Pharmacy 71.7895; Globulin 3.1 g/dL (1.3-4.6); Glucose 97 mg/dL (65-115); Lactate Dehydrogenase 152 U/L (135-214); Osmolality Calculated 289 mOsm/kg (285-295); Potassium 4.1 mmol/L (3.5-5.1); Sodium 138 mmol/L (136-145); Total Bilirubin 0.2 mg/dL (0.15-1.2); Total Protein 7.2 g/dL (6.6-8.7)
== END 2024-06-18 23:59 | disposition home or self-care (01) ==
PROVIDERS: PCP Family Medicine; Visit Provider Nurse Practitioner Family
DX: Z85.72 Personal history of non-Hodgkin lymphomas; Z92.3 Personal history of irradiation; Z92.21 Personal history of antineoplastic chemotherapy; Z95.828 Presence of other vascular implants and grafts; Z08 Encounter for follow-up examination after completed treatment for malignant neoplasm; Z53.9 Procedure and treatment not carried out, unspecified reason
CPT/HCPCS: 36591; 80053; 83615; 85025; 99214

== ENCOUNTER 2024-05-31 15:15 | Outpatient (CLI) | payer MEDICARE, SELFPAY ==
--- NOTE | 2024-05-31 15:45 | USR_ITS ---
PROCEDURE INFORMATION: Exam: US Soft Tissue Head and Neck, Thyroid Exam date and time: 05/31/2024 3:51 PM Age: 74 years old Clinical indication: Abnormal findings; Abnormal radiologic study of neck; Additional info: Abnormal CT neck 05/15/24, heterogeneous thyroid gland with underlying nodules. TECHNIQUE: Imaging protocol: Real-time ultrasound scan of the neck with image documentation. Exam focused on the thyroid. COMPARISON: US soft tissue head neck [id number] 07/27/2021 1:33 PM FINDINGS: The right lobe measures 4.3 x 1.0 x 1.5 cm. The left lobe measures 4.4 x 1.3 x 1.9 cm. The isthmus measures about 2 mm in thickness. Thyroid architecture is heterogeneous with no identifiable nodules. No identifiable adenopathy. US/US thyroid [id number] IMPRESSION: Heterogeneous thyroid with no identifiable nodules.
== END 2024-05-31 15:16 | disposition home or self-care (01) ==
LOC: RAD 15:15
PROVIDERS: PCP Family Medicine; Visit Provider Nurse Practitioner Family
DX: C85.10 Unspecified B-cell lymphoma, unspecified site (principal); R93.7 Abnormal findings on diagnostic imaging of other parts of musculoskeletal system
CPT/HCPCS: 76536

== ENCOUNTER 2024-07-09 12:49 | Oncology outpatient (recurring) (ONCR) | payer MEDICARE, SELFPAY | END 2024-07-19 23:59 | disposition home or self-care (01) | PROVIDERS: PCP Family Medicine; Visit Provider Nurse Practitioner Family | DX: Z45.2 Encounter for adjustment and management of vascular access device (principal) | CPT/HCPCS: 96523 ==

== ENCOUNTER 2024-08-13 09:37 | Oncology outpatient (recurring) (ONCR) | payer MEDICARE, SELFPAY | END 2024-08-16 23:59 | disposition home or self-care (01) | LOC: ONCMED 09:37 | PROVIDERS: PCP Family Medicine; Visit Provider Nurse Practitioner Family | DX: Z45.2 Encounter for adjustment and management of vascular access device (principal) | CPT/HCPCS: 96523 ==

== ENCOUNTER 2024-09-03 13:10 | Oncology outpatient (recurring) (ONCR) | payer MEDICARE, SELFPAY | END 2024-09-16 23:59 | disposition home or self-care (01) | LOC: ONCMED 13:11 | PROVIDERS: PCP Family Medicine; Visit Provider Nurse Practitioner Family | DX: Z45.2 Encounter for adjustment and management of vascular access device (principal); Z95.828 Presence of other vascular implants and grafts | CPT/HCPCS: 96523 ==

== ENCOUNTER 2024-10-01 12:41 | Oncology outpatient (recurring) (ONCR) | payer MEDICARE, SELFPAY | END 2024-10-16 23:59 | disposition home or self-care (01) | LOC: ONCMED 12:42 | PROVIDERS: PCP Family Medicine; Visit Provider Nurse Practitioner Family | DX: Z45.2 Encounter for adjustment and management of vascular access device (principal) | CPT/HCPCS: 96523 ==

== ENCOUNTER 2024-10-29 12:43 | Oncology outpatient (recurring) (ONCR) | payer MEDICARE, SELFPAY | END 2024-11-16 23:59 | disposition home or self-care (01) | LOC: ONCMED 12:44 | PROVIDERS: PCP Family Medicine; Visit Provider Nurse Practitioner Family | DX: Z45.2 Encounter for adjustment and management of vascular access device (principal) | CPT/HCPCS: 96523 ==

== ENCOUNTER 2024-11-26 12:07 | Oncology outpatient (recurring) (ONCR) | payer MEDICARE, SELFPAY ==
[2024-11-26 12:32] LABS: Basophils % 0.3 %; Eosinophils # 0.1 10^3/uL (0.0-0.8); Eosinophils % 1.9 %; Hematocrit 39.4 % (36-47); Lymphocytes # 1.9 10^3/uL (0.8-4.8); Mean Corpuscular HGB Conc 33.5 g/dL (30-55); Mean Corpuscular Hemoglobin 31.4 pg (27-33); Mean Corpuscular Volume 93.8 fl (85-98); Mean Platelet Volume 9.6 fL (7.4-10.4); Monocytes # 0.5 10^3/uL (0.2-0.9); Monocytes % 8.2 %; Neutrophils # 3.34 10^3/uL (1.8-7.7); Neutrophils % 57.4 %; Nucleated Red Blood Cells % 0 %; Platelet Count 159 10^3/cmm (157-399); Red Cell Distribution Width 13.2 % (12.1-15.1); White Blood Count 5.82 10^3/uL (3.29-11.43)
[2024-11-26 12:52] LABS: Alanine Aminotransferase 9 U/L (0-33); Albumin Level 4.2 g/dL (3.5-5.2); Alkaline Phosphatase 98 U/L (35-105); Aspartate Amino Transferase 14 U/L (0-32); Blood Urea Nitrogen 16 mg/dL (8-23); Carbon Dioxide 22 mmol/L (22-29); Chloride 102 mmol/L (98-107); Globulin 2.9 g/dL (1.3-4.6); Glucose 83 mg/dL (65-115); Lactate Dehydrogenase 139 U/L (135-214); Osmolality Calculated 282 mOsm/kg (285-295); Sodium 136 mmol/L (136-145); Total Bilirubin 0.4 mg/dL (0.15-1.2); Total Protein 7.1 g/dL (6.6-8.7)
[2024-11-26 21:36] LABS: Free T4 Free Thyroxine 1.05 ng/dL (0.82-1.77); T3 Free 2.2 PG/ML (2.0-4.4)
== END 2024-12-16 23:59 | disposition home or self-care (01) ==
PROVIDERS: PCP Family Medicine; Visit Provider Nurse Practitioner Family
DX: C85.10 Unspecified B-cell lymphoma, unspecified site (principal); R03.0 Elevated blood-pressure reading, without diagnosis of hypertension; R93.89 Abnormal findings on diagnostic imaging of other specified body structures; F41.9 Anxiety disorder, unspecified
CPT/HCPCS: 36591; 80053; 83615; 84439; 84443; 84481; 85025; 99214

== ENCOUNTER 2024-12-31 13:31 | Oncology outpatient (recurring) (ONCR) | payer MEDICARE, SELFPAY | END 2025-01-16 23:59 | disposition home or self-care (01) | LOC: ONCMED 13:32 | PROVIDERS: PCP Family Medicine; Visit Provider Nurse Practitioner Family | DX: Z45.2 Encounter for adjustment and management of vascular access device (principal); Z95.828 Presence of other vascular implants and grafts | CPT/HCPCS: 96523 ==

== ENCOUNTER 2025-02-05 08:24 | Oncology outpatient (recurring) (ONCR) | payer MEDICARE, SELFPAY | END 2025-02-16 23:59 | disposition home or self-care (01) | LOC: ONCMED 08:25 | PROVIDERS: PCP Family Medicine; Visit Provider Nurse Practitioner Family | DX: Z45.2 Encounter for adjustment and management of vascular access device (principal); Z95.828 Presence of other vascular implants and grafts | CPT/HCPCS: 96523 ==

== ENCOUNTER 2025-03-11 11:50 | Oncology outpatient (recurring) (ONCR) | payer MEDICARE, SELFPAY | END 2025-03-18 23:59 | disposition home or self-care (01) | LOC: ONCMED 11:51 | PROVIDERS: PCP Family Medicine; Visit Provider Nurse Practitioner Family | DX: Z45.2 Encounter for adjustment and management of vascular access device (principal); Z95.828 Presence of other vascular implants and grafts | CPT/HCPCS: 96523 ==

== ENCOUNTER 2025-04-15 11:53 | Oncology outpatient (recurring) (ONCR) | payer MEDICARE, SELFPAY ==
[2025-04-15 12:20] LABS: Hematocrit 40.0 % (36-47); Hemoglobin 13.30 g/dL (11.27-16.99); Mean Corpuscular HGB Conc 33.3 g/dL (30-55); Mean Corpuscular Hemoglobin 31.4 pg (27-33); Mean Corpuscular Volume 94.6 fl (85-98); Nucleated Red Blood Cells % 0 %; Platelet Count 165 10^3/cmm (157-399); Red Blood Count 4.23 10^6/uL (3.85-5.65); White Blood Count 6.62 10^3/uL (3.29-11.43)
[2025-04-15 12:36] LABS: Alanine Aminotransferase 11 U/L (0-33); Albumin Level 4.2 g/dL (3.5-5.2); Alkaline Phosphatase 106 U/L (35-105); Anion Gap 16.0 (5-19); Aspartate Amino Transferase 15 U/L (0-32); Blood Urea Nitrogen 14 mg/dL (8-23); Calcium 9.0 mg/dL (8.5-10.5); Carbon Dioxide 24 mmol/L (22-29); Chloride 102 mmol/L (98-107); Globulin 2.9 g/dL (1.3-4.6); Glucose 100 mg/dL (65-115); Osmolality Calculated 287 mOsm/kg (285-295); Potassium 4.0 mmol/L (3.5-5.1); Sodium 138 mmol/L (136-145); Total Protein 7.1 g/dL (6.6-8.7)
== END 2025-04-18 23:59 | disposition home or self-care (01) ==
PROVIDERS: PCP Family Medicine; Visit Provider Nurse Practitioner Family
DX: C85.11 Unspecified B-cell lymphoma, lymph nodes of head, face, and neck (principal)
CPT/HCPCS: 36591; 80053; 83615; 85025

== ENCOUNTER 2025-05-13 11:49 | Oncology outpatient (recurring) (ONCR) | payer MEDICARE, SELFPAY | END 2025-05-18 23:59 | disposition home or self-care (01) | LOC: ONCMED 11:49 | PROVIDERS: PCP Family Medicine; Visit Provider Nurse Practitioner Family | DX: Z45.2 Encounter for adjustment and management of vascular access device (principal); Z95.828 Presence of other vascular implants and grafts | CPT/HCPCS: 96523 ==

== ENCOUNTER 2025-06-17 12:30 | Oncology outpatient (recurring) (ONCR) | payer MEDICARE, SELFPAY ==
[2025-05-27 11:18] LABS: Hematocrit 40.4 % (36-47); Hemoglobin 13.40 g/dL (11.27-16.99); Mean Corpuscular HGB Conc 33.2 g/dL (30-55); Mean Corpuscular Hemoglobin 31.2 pg (27-33); Mean Corpuscular Volume 94.2 fl (85-98); Nucleated Red Blood Cells % 0 %; Platelet Count 168 10^3/cmm (157-399); Red Blood Count 4.29 10^6/uL (3.85-5.65); White Blood Count 5.67 10^3/uL (3.29-11.43)
[2025-05-27 11:53] LABS: Alanine Aminotransferase 11 U/L (0-33); Albumin Level 4.4 g/dL (3.5-5.2); Alkaline Phosphatase 92 U/L (35-105); Anion Gap 13.4 (5-19); Aspartate Amino Transferase 18 U/L (0-32); Blood Urea Nitrogen 9 mg/dL (8-23); Calcium 9.4 mg/dL (8.5-10.5); Carbon Dioxide 27 mmol/L (22-29); Chloride 103 mmol/L (98-107); Globulin 2.8 g/dL (1.3-4.6); Glucose 87 mg/dL (65-115); Osmolality Calculated 286 mOsm/kg (285-295); Potassium 4.4 mmol/L (3.5-5.1); Sodium 139 mmol/L (136-145); Thyroid Stimulating Hormone 25.49 uIU/mL (0.27-4.20); Total Protein 7.2 g/dL (6.6-8.7)
== END 2025-06-18 23:59 | disposition home or self-care (01) ==
PROVIDERS: Internal Medicine Medical Oncology; PCP Family Medicine; Visit Provider Nurse Practitioner Family
DX: Z53.9 Procedure and treatment not carried out, unspecified reason; Z45.2 Encounter for adjustment and management of vascular access device; Z95.828 Presence of other vascular implants and grafts
CPT/HCPCS: 36591; 80053; 83615; 84443; 85025; 96523; 99214